=== PATIENT | female | born 1955 ===

== ENCOUNTER 2019-09-20 15:32 | Inpatient (IN) ==
[2019-09-20] MEDS ORDERED: MAGNESIUM SULF RIDER 2 GM in PREMIX 1 EACH IV PRN (16:51)
[2019-09-20] MEDS ORDERED: GLUCAGON 1 MG VIAL IM PRN ×2 (16:51)
[2019-09-20] MEDS ORDERED: MAGNESIUM SULF RIDER 4 GM in PREMIX 1 EACH IV PRN (16:51)
[2019-09-20] MEDS ORDERED: POTASSIUM CHLORIDE RIDER 10 MEQ in PREMIX 1 EACH IV PRN (16:51)
[2019-09-20] MEDS ORDERED: DEXTROSE 50% 25 GM/50 ML VIAL IV PRN ×2 (16:51)
[2019-09-20] MEDS ORDERED: ALBUTEROL 2.5 MG/3 ML NEB RESP TX PRN (16:57)
[2019-09-20] MEDS ORDERED: cefTRIAXone 1,000 MG in SYRINGE 1 EACH IV SCH (17:00)
[2019-09-20 17:42] LABS: ABG Base Excess 0.6 MMOL/L (-2.5-2.5); ABG HCO3 24.8 MMOL/L (20-26); ABG Oxygen Saturation 87.8 % (95-100); ABG PCO2 36.7 MM HG (35-48); ABG PH 7.435 (7.35-7.45); ABG PO2 53.6 MM HG (80-95); ABG TCO2 22.7 MMOL/L (23-27)
[2019-09-20] MEDS: HEPARIN 5,000 UNIT/1 ML VIAL SUBCUT SCH (19:03)
[2019-09-20] MEDS: AZITHROMYCIN INJ 500 MG in SODIUM CHLORIDE 0.9% 250 ML IV SCH (19:03)
[2019-09-20] MEDS: ALBUTEROL/IPRATROPIUM 3 ML NEB RESP TX SCH (19:21)
[2019-09-20] MEDS ORDERED: SIMVASTATIN 10 MG TABLET PO SCH (21:00)
[2019-09-20 21:22] LABS: Troponin I 0.945 NG/ML (0.00-0.045)
[2019-09-20] MEDS: guaiFENesin/DM ER 600-30 MG TABLET PO SCH (23:30)
[2019-09-20] MEDS: carvediloL 6.25 MG TABLET PO SCH (23:30)
[2019-09-20] MEDS: INSULIN GLARGINE 100 UNIT/ML SUBCUT SCH (23:30)
[2019-09-20] MEDS: INSULIN REGULAR 100 UNIT/ML SUBCUT SCH (23:31)
[2019-09-21] MEDS: ALBUTEROL/IPRATROPIUM 3 ML NEB RESP TX SCH ×4 (01:04→19:24)
[2019-09-21] MEDS: HEPARIN 5,000 UNIT/1 ML VIAL SUBCUT SCH (01:25)
[2019-09-21 03:22] LABS: Apearance,Urine CLOUDY (Clear); Bacteria,Urine Many /HPF (Few); Bilirubin,Urine Negative (Negative); Blood, Urine Small mg/dL (Negative); Glucose,Urine (UA) >=500 mg/dL (Negative); Ketones,Urine Negative (Negative); Mucus,Urine Occasional /LPF (Occasional); Nitrite,Urine Negative (Negative); Protein,Urine >=500 MG/DL; RBC,Urine 20 /HPF (0-4); Squamous Epithelial Cell,Urine Occasional /HPF (0-10); Urine Color Amber (Yellow); Urine Specific Gravity 1.014 (1.001-1.035); Urine Urobilinogen < 2.0 EU/DL (0.2-1.0); WBC,Urine 34 /HPF (0-6)
[2019-09-21 06:13] LABS: Basophils # 0.1 10*3/uL (0.0-0.2); Basophils % 0.6 % (0.0-0.8); Eosinophils # 0.4 10*3/uL (0.0-0.87); Eosinophils % 3.9 % (0.00-10.9); Hematocrit 26.4 VOL% (35.7-47.0); Hemoglobin 8.5 GM/DL (12.0-16.0); Immature Granulocytes % 0.4 %; Immature Granulocytes Absolute 0.04 #; Lymphocytes # 1.6 10*3/uL (1.4-4.0); Lymphocytes % 15.9 % (21.3-54.2); Mean Corpuscular HGB Conc 32.2 GM/DL (32-36); Mean Corpuscular Volume 86.8 FL (87-102); Mean Platelet Volume 10.6 FL (9.6-12.0); Monocytes % 7.8 % (1.7-12.7); Neutrophils % 71.4 % (38.7-73.9); Platelet Count 283 T/CUMM (130-400); Red Blood Count 3.04 MC/CUMM (3.8-5.5); Red Cell Distribution Width 13.6 % (9.3-17.3); White Blood Count 9.8 T/CUMM (4-12)
[2019-09-21 06:50] LABS: Albumin 2.3 G/DL (3.4-5.0); Bilirubin,Total 1.5 MG/DL (0.2-1.0); Calcium 8.6 MG/DL (8.5-10.1); Osmolality,Calculated 295.5 MOS/KG (273-304); Risk Ratio 3.42; Total Protein 6.3 G/DL (6.4-8.3); VLDL CHOLESTEROL 29.6 MG/DL
[2019-09-21] MEDS: INSULIN REGULAR 100 UNIT/ML SUBCUT SCH ×4 (08:53→22:34)
[2019-09-21] MEDS: PANTOPRAZOLE 40 MG TABLET PO SCH (08:54)
[2019-09-21] MEDS: amLODIPine 10 MG TABLET PO SCH (08:54)
[2019-09-21] MEDS: ASPIRIN CHEW 81 MG TABLET PO SCH (08:54)
[2019-09-21] MEDS: TOLTERODINE LA 4 MG CAPSULE PO SCH (08:54)
[2019-09-21] MEDS: carvediloL 6.25 MG TABLET PO SCH ×2 (08:54→22:33)
[2019-09-21] MEDS: SPIRONOLACTONE 25 MG TABLET PO SCH (08:54)
[2019-09-21] MEDS: ENOXAPARIN 100 MG/ML SYRINGE SUBCUT SCH (08:55)
[2019-09-21] MEDS: guaiFENesin/DM ER 600-30 MG TABLET PO SCH ×2 (08:55→22:33)
[2019-09-21] MEDS: FUROSEMIDE 40 MG/4 ML VIAL IV SCH ×2 (08:55→15:24)
[2019-09-21] MEDS: cefTRIAXone 1,000 MG in SYRINGE 1 EACH IV SCH (08:58)
[2019-09-21] MEDS: INSULIN GLARGINE 100 UNIT/ML SUBCUT SCH ×2 (09:04→22:33)
[2019-09-21] MEDS ORDERED: POTASSIUM CHLORIDE 20 MEQ TABLET PO ONE (11:04)
[2019-09-21] MEDS: hydrALAZINE 25 MG TABLET PO SCH ×3 (12:02→22:33)
[2019-09-21] MEDS: ISOSORBIDE MONONITRATE 30 MG TABLET PO SCH (12:02)
[2019-09-21] MEDS: AZITHROMYCIN INJ 500 MG in SODIUM CHLORIDE 0.9% 250 ML IV SCH (17:39)
[2019-09-21] MEDS ORDERED: ROSUVASTATIN 20 MG TABLET PO SCH (21:00)
[2019-09-22] MEDS: ALBUTEROL/IPRATROPIUM 3 ML NEB RESP TX SCH ×2 (00:22→07:46)
[2019-09-22 05:48] LABS: Basophils # 0.1 10*3/uL (0.0-0.2); Basophils % 0.8 % (0.0-0.8); Eosinophils # 0.8 10*3/uL (0.0-0.87); Eosinophils % 7.9 % (0.00-10.9); Hematocrit 25.5 VOL% (35.7-47.0); Hemoglobin 8.1 GM/DL (12.0-16.0); Immature Granulocytes % 0.3 %; Immature Granulocytes Absolute 0.03 #; Lymphocytes # 2.1 10*3/uL (1.4-4.0); Lymphocytes % 21.7 % (21.3-54.2); Mean Corpuscular HGB Conc 31.8 GM/DL (32-36); Mean Corpuscular Volume 89.5 FL (87-102); Mean Platelet Volume 10.7 FL (9.6-12.0); Monocytes % 8.1 % (1.7-12.7); Neutrophils % 61.2 % (38.7-73.9); Platelet Count 296 T/CUMM (130-400); Red Blood Count 2.85 MC/CUMM (3.8-5.5); Red Cell Distribution Width 13.7 % (9.3-17.3); White Blood Count 9.5 T/CUMM (4-12)
[2019-09-22 06:14] LABS: Albumin 2.3 G/DL (3.4-5.0); Bilirubin,Total 0.4 MG/DL (0.2-1.0); Calcium 8.4 MG/DL (8.5-10.1); Osmolality,Calculated 298.7 MOS/KG (273-304); Total Protein 6.6 G/DL (6.4-8.3)
[2019-09-22 06:15] LABS: Calcium 8.4 MG/DL (8.5-10.1); Osmolality,Calculated 297.8 MOS/KG (273-304)
[2019-09-22 07:53] LABS: % Iron Saturation 14.8 % (18-50); Ferritin 103.6 ng/ml (8-252)
[2019-09-22 09:01] VITALS: BP 127/50
[2019-09-22] MEDS: INSULIN REGULAR 100 UNIT/ML SUBCUT SCH ×2 (09:21→12:46)
[2019-09-22] MEDS: INSULIN GLARGINE 100 UNIT/ML SUBCUT SCH (09:21)
[2019-09-22] MEDS ORDERED: POTASSIUM CHLORIDE 20 MEQ TABLET PO ONE (09:39)
[2019-09-22] MEDS ORDERED: FUROSEMIDE 40 MG TABLET PO SCH (09:50)
[2019-09-22] MEDS: TOLTERODINE LA 4 MG CAPSULE PO SCH (10:00)
[2019-09-22] MEDS: hydrALAZINE 25 MG TABLET PO SCH (10:00)
[2019-09-22] MEDS: guaiFENesin/DM ER 600-30 MG TABLET PO SCH (10:00)
[2019-09-22] MEDS: carvediloL 6.25 MG TABLET PO SCH (10:00)
[2019-09-22] MEDS: ENOXAPARIN 100 MG/ML SYRINGE SUBCUT SCH (10:00)
[2019-09-22] MEDS: ISOSORBIDE MONONITRATE 30 MG TABLET PO SCH (10:00)
[2019-09-22] MEDS: amLODIPine 10 MG TABLET PO SCH (10:00)
[2019-09-22] MEDS: cefTRIAXone 1,000 MG in SYRINGE 1 EACH IV SCH (10:00)
[2019-09-22] MEDS: PANTOPRAZOLE 40 MG TABLET PO SCH (10:00)
[2019-09-22] MEDS: SPIRONOLACTONE 25 MG TABLET PO SCH (10:00)
[2019-09-22] MEDS: ASPIRIN CHEW 81 MG TABLET PO SCH (10:00)
[2019-09-22] MEDS: FUROSEMIDE 40 MG/4 ML VIAL IV SCH (10:49)
[2019-09-22] MEDS ORDERED: SODIUM CHLORIDE 0.9% 1,000 ML IV PRN (12:28)
[2019-09-22 18:30] LABS: Folate 10.1 NG/ML (5.4-24.0)
== END 2019-09-22 14:10 | disposition home or self-care (01) | DRG 280 ==
LOC: EDBD → EDUNIT# → N.ED 15:32 → N.EDINP 17:36 → N.5E 18:20
PROVIDERS: ADMIT Internal Medicine; ATTEND Internal Medicine

== ENCOUNTER 2019-11-08 18:20 | Inpatient (IN) ==
[2019-11-08 19:28] LABS: Basophils # 0.1 10*3/uL (0.0-0.2); Basophils % 0.8 % (0.0-0.8); Eosinophils # 0.3 10*3/uL (0.0-0.87); Eosinophils % 3.1 % (0.00-10.9); Hemoglobin 12.2 GM/DL (12.0-16.0); Immature Granulocytes % 0.3 %; Immature Granulocytes Absolute 0.03 #; Lymphocytes # 2.8 10*3/uL (1.4-4.0); Lymphocytes % 25.5 % (21.3-54.2); Mean Corpuscular Volume 82.8 FL (87-102); Mean Platelet Volume 9.5 FL (9.6-12.0); Monocytes % 4.6 % (1.7-12.7); Neutrophils % 65.7 % (38.7-73.9); Platelet Count 330 T/CUMM (130-400); Red Blood Count 4.47 MC/CUMM (3.8-5.5); Red Cell Distribution Width 13.4 % (9.3-17.3); White Blood Count 10.9 T/CUMM (4-12)
[2019-11-08 19:39] LABS: PT Patient Result 10.5 SECS (9.6-12.2)
[2019-11-08 19:45] LABS: Calcium 9.3 MG/DL (8.5-10.1); Osmolality,Calculated 280.2 MOS/KG (273-304)
[2019-11-08] MEDS ORDERED: DEXTROSE 50% 25 GM/50 ML VIAL IV PRN ×2 (20:00→20:02)
[2019-11-08] MEDS ORDERED: GLUCAGON 1 MG VIAL IM PRN ×2 (20:00→20:02)
[2019-11-09] MEDS: ROSUVASTATIN 20 MG TABLET PO SCH ×2 (01:44→20:43)
[2019-11-09] MEDS: INSULIN LISPRO 100 UNIT/ML SUBCUT SCH ×4 (01:45→16:18)
[2019-11-09 05:48] LABS: Basophils # 0.1 10*3/uL (0.0-0.2); Basophils % 0.9 % (0.0-0.8); Eosinophils # 0.4 10*3/uL (0.0-0.87); Eosinophils % 4.8 % (0.00-10.9); Hematocrit 34.3 VOL% (35.7-47.0); Hemoglobin 11.1 GM/DL (12.0-16.0); Immature Granulocytes % 0.3 %; Immature Granulocytes Absolute 0.03 #; Lymphocytes # 2.2 10*3/uL (1.4-4.0); Lymphocytes % 25.7 % (21.3-54.2); Mean Corpuscular HGB Conc 32.4 GM/DL (32-36); Mean Corpuscular Volume 84.1 FL (87-102); Mean Platelet Volume 10.3 FL (9.6-12.0); Monocytes % 6.5 % (1.7-12.7); Neutrophils % 61.8 % (38.7-73.9); Platelet Count 304 T/CUMM (130-400); Red Blood Count 4.08 MC/CUMM (3.8-5.5); Red Cell Distribution Width 13.5 % (9.3-17.3); White Blood Count 8.7 T/CUMM (4-12)
[2019-11-09 06:18] LABS: Calcium 8.9 MG/DL (8.5-10.1); Osmolality,Calculated 292.1 MOS/KG (273-304); Risk Ratio 2.94; Thyroid Stimulating Hormone 3.56 uIU/ml (0.358-3.74); VLDL CHOLESTEROL 45.8 MG/DL
[2019-11-09] MEDS: ASPIRIN EC 325 MG TABLET PO SCH (08:30)
[2019-11-09] MEDS ORDERED: hydrALAZINE 20 MG/1 ML VIAL IV ONE (12:43)
[2019-11-09] MEDS ORDERED: hydrALAZINE 20 MG/1 ML VIAL IV PRN (12:44)
[2019-11-09] MEDS: POTASSIUM CHLORIDE 20 MEQ TABLET PO PRN ×3 (14:22→17:54)
[2019-11-09] MEDS: SODIUM CHLORIDE 0.9% 1,000 ML IV SCH (17:58)
[2019-11-10] MEDS: INSULIN LISPRO 100 UNIT/ML SUBCUT SCH ×5 (04:17→20:14)
[2019-11-10 05:22] LABS: Basophils # 0.1 10*3/uL (0.0-0.2); Basophils % 1.1 % (0.0-0.8); Eosinophils # 0.5 10*3/uL (0.0-0.87); Eosinophils % 5.6 % (0.00-10.9); Hematocrit 34.4 VOL% (35.7-47.0); Hemoglobin 10.9 GM/DL (12.0-16.0); Immature Granulocytes % 0.4 %; Immature Granulocytes Absolute 0.03 #; Lymphocytes # 2.5 10*3/uL (1.4-4.0); Lymphocytes % 29.7 % (21.3-54.2); Mean Corpuscular HGB Conc 31.7 GM/DL (32-36); Mean Corpuscular Volume 84.7 FL (87-102); Monocytes % 7.9 % (1.7-12.7); Neutrophils % 55.3 % (38.7-73.9); Platelet Count 293 T/CUMM (130-400); Red Blood Count 4.06 MC/CUMM (3.8-5.5); Red Cell Distribution Width 13.3 % (9.3-17.3); White Blood Count 8.5 T/CUMM (4-12)
[2019-11-10 05:41] LABS: Calcium 8.5 MG/DL (8.5-10.1); Osmolality,Calculated 291.7 MOS/KG (273-304)
[2019-11-10] MEDS: SODIUM CHLORIDE 0.9% 1,000 ML IV SCH (07:57)
[2019-11-10] MEDS: ASPIRIN EC 325 MG TABLET PO SCH (08:00)
[2019-11-10] MEDS: CYANOCOBALAMIN 500 MCG TABLET PO SCH (08:00)
[2019-11-10] MEDS ORDERED: amLODIPine 10 MG TABLET PO SCH (12:30)
[2019-11-10] MEDS: ROSUVASTATIN 20 MG TABLET PO SCH (20:13)
[2019-11-11 05:54] LABS: Basophils # 0.1 10*3/uL (0.0-0.2); Basophils % 0.8 % (0.0-0.8); Eosinophils # 0.7 10*3/uL (0.0-0.87); Eosinophils % 6.8 % (0.00-10.9); Hematocrit 34.2 VOL% (35.7-47.0); Hemoglobin 11.1 GM/DL (12.0-16.0); Immature Granulocytes % 0.3 %; Immature Granulocytes Absolute 0.03 #; Lymphocytes # 2.3 10*3/uL (1.4-4.0); Lymphocytes % 24.2 % (21.3-54.2); Mean Corpuscular HGB Conc 32.5 GM/DL (32-36); Mean Corpuscular Volume 83.6 FL (87-102); Mean Platelet Volume 10.4 FL (9.6-12.0); Monocytes % 6.9 % (1.7-12.7); Platelet Count 297 T/CUMM (130-400); Red Blood Count 4.09 MC/CUMM (3.8-5.5); Red Cell Distribution Width 13.2 % (9.3-17.3); White Blood Count 9.5 T/CUMM (4-12)
[2019-11-11 06:05] LABS: Calcium 9.2 MG/DL (8.5-10.1); Osmolality,Calculated 283.1 MOS/KG (273-304)
[2019-11-11] MEDS: INSULIN LISPRO 100 UNIT/ML SUBCUT SCH ×2 (08:13→12:30)
[2019-11-11] MEDS: ASPIRIN EC 325 MG TABLET PO SCH (08:14)
[2019-11-11] MEDS: CYANOCOBALAMIN 500 MCG TABLET PO SCH (08:14)
[2019-11-11] MEDS ORDERED: SPIRONOLACTONE 25 MG TABLET PO SCH (09:00)
[2019-11-11] MEDS ORDERED: carvediloL 12.5 MG TABLET PO SCH (09:00)
[2019-11-11] MEDS ORDERED: GABAPENTIN 300 MG CAPSULE PO SCH (09:00)
[2019-11-11] MEDS ORDERED: FUROSEMIDE 40 MG TABLET PO SCH (09:00)
[2019-11-11] MEDS ORDERED: CLOPIDOGREL 75 MG TABLET PO SCH (09:00)
[2019-11-11] MEDS ORDERED: TOLTERODINE LA 4 MG CAPSULE PO SCH (09:00)
[2019-11-11] MEDS ORDERED: ISOSORBIDE DINITRATE 20 MG TABLET PO SCH (09:00)
[2019-11-11] MEDS ORDERED: hydrALAZINE 25 MG TABLET PO SCH (09:00)
[2019-11-11] MEDS ORDERED: amLODIPine 2.5 MG TABLET PO SCH (09:00)
[2019-11-11] MEDS: SODIUM CHLORIDE 0.9% 1,000 ML IV SCH (10:30)
[2019-11-11 11:49] VITALS: BP 172/78
== END 2019-11-11 12:55 | disposition home or self-care (01) | DRG 65 ==
LOC: EDBD → EDUNIT# → N.EDINP 18:20 → N.ED 18:20 → N.4E 22:01
PROVIDERS: ADMIT Internal Medicine; ATTEND Internal Medicine

== ENCOUNTER 2020-08-15 06:00 | Inpatient (IN) ==
[2020-08-15] MEDS ORDERED: DEXTROSE 50% 25 GM/50 ML VIAL IV PRN ×2 (09:39→09:43)
[2020-08-15] MEDS ORDERED: GLUCAGON 1 MG VIAL IM PRN ×2 (09:39→09:43)
[2020-08-15] MEDS ORDERED: SODIUM CHLORIDE 0.9% 1,000 ML IV SCH (10:00)
[2020-08-15] MEDS ORDERED: PNEUMOCOCCAL VACCINE (13 VALENT) 0.5 ML SYRINGE IM ONE (10:18)
[2020-08-15 10:23] LABS: Basophils # 0.1 10*3/uL (0.0-0.2); Basophils % 0.8 % (0.0-0.8); Eosinophils # 0.3 10*3/uL (0.0-0.87); Hematocrit 30.7 VOL% (35.7-47.0); Immature Granulocytes % 0.4 %; Immature Granulocytes Absolute 0.03 #; Lymphocytes # 1.4 10*3/uL (1.4-4.0); Lymphocytes % 16.4 % (21.3-54.2); Mean Corpuscular HGB Conc 32.6 GM/DL (32-36); Mean Corpuscular Volume 84.1 FL (87-102); Mean Platelet Volume 10.6 FL (9.6-12.0); Monocytes % 4.9 % (1.7-12.7); Neutrophils % 74.5 % (38.7-73.9); Platelet Count 224 T/CUMM (130-400); Red Blood Count 3.65 MC/CUMM (3.8-5.5); White Blood Count 8.5 T/CUMM (4-12)
[2020-08-15 10:44] LABS: Albumin 3.3 G/DL (3.4-5.0); Bilirubin,Total 0.7 MG/DL (0.2-1.0); Calcium 8.6 MG/DL (8.5-10.1); Osmolality,Calculated 300.4 MOS/KG (273-304)
[2020-08-15] MEDS ORDERED: NITROGLYCERIN SL 0.4 MG TABLET SL PRN (11:18)
[2020-08-15] MEDS ORDERED: CLORAZEPATE 3.75 MG TABLET PO PRN (11:27)
[2020-08-15] MEDS ORDERED: ZALEPLON 5 MG CAPSULE PO PRN (11:27)
[2020-08-15] MEDS: INSULIN REGULAR 100 UNIT/ML SUBCUT SCH ×3 (12:21→21:24)
[2020-08-15 14:03] LABS: ABG Base Excess -0.6 MMOL/L (-2.5-2.5); ABG HCO3 23.9 MMOL/L (20-26); ABG Oxygen Saturation 96.3 % (95-100); ABG PCO2 39.8 MM HG (35-48); ABG PH 7.393 (7.35-7.45); ABG PO2 82.3 MM HG (80-95)
[2020-08-15] MEDS ORDERED: INSULIN REGULAR 100 UNIT/ML IV ONE (14:11)
[2020-08-15] MEDS: hydrALAZINE 25 MG TABLET PO SCH ×2 (14:48→21:24)
[2020-08-15] MEDS: CHLORHEXIDINE 4% SOLN 118 ML BOTTLE TOP SCH ×2 (15:14→21:33)
[2020-08-15] MEDS ORDERED: INSULIN GLARGINE 100 UNIT/ML SUBCUT SCH (21:00)
[2020-08-15] MEDS: CHLORHEXIDINE 0.12% ORAL RINSE 60 ML BOTTLE SWISH/SPIT SCH (21:26)
[2020-08-16] MEDS ORDERED: PAPAVERINE 60 MG/2 ML VIAL ONE (04:23)
[2020-08-16] MEDS ORDERED: VANCOMYCIN 1,000 MG VIAL ONE (04:24)
[2020-08-16] MEDS ORDERED: VANCOMYCIN 500 MG VIAL ONE (04:24)
[2020-08-16] MEDS: CHLORHEXIDINE 4% SOLN 118 ML BOTTLE TOP SCH ×2 (04:44→12:55)
[2020-08-16] MEDS ORDERED: CEFUROXIME INJ 1,500 MG in SYRINGE 1 EACH IV ONE (05:00)
[2020-08-16] MEDS ORDERED: MIDAZOLAM 10 MG/2 ML VIAL ONE (05:59)
[2020-08-16] MEDS ORDERED: SUFentanil 250 MCG/5 ML AMP ONE (05:59)
[2020-08-16] MEDS ORDERED: FAMOTIDINE 20 MG TABLET PO ONE (06:03)
[2020-08-16] MEDS ORDERED: DIAZEPAM 5 MG TABLET PO ONE (06:03)
[2020-08-16] MEDS ORDERED: PHENYLEPHRINE DRIP 40 MG/250 ML PREMIX IV ONE (07:04)
[2020-08-16 07:49] LABS: ABG Base Excess -1.3 MMOL/L (-2.5-2.5); ABG HCO3 23.3 MMOL/L (20-26); ABG Oxygen Saturation 99.9 % (95-100); ABG PH 7.403 (7.35-7.45); ABG TCO2 21.2 MMOL/L (23-27); Glucose Heart Surgery 204 MG/DL (74-106); Hematocrit Heart Surgery 28.3 PERCENT (37-47); Hemoglobin Heart Surgery 9.1 G/DL (12.0-16.0); Ionized Calcium Arterial 1.13 MMOL/L (1.21-1.46); PH Patient Temp Arterial 7.403; Patient Temperature 37 CELCIUS; Potassium Heart/CVR 3.9 MMOL/L (3.5-5.1); Sodium Heart/CVR 140 MMOL/L (135-145)
[2020-08-16 07:58] LABS: Amorphous Crystals,Urine Few /HPF (Few); Bacteria,Urine Many /HPF (Few); Bilirubin,Urine Negative (Negative); Blood, Urine Negative (Negative); Glucose,Urine (UA) 50 mg/dL (Negative); Ketones,Urine Negative (Negative); Nitrite,Urine Positive (Negative); Protein,Urine 100 MG/DL; RBC,Urine 4 /HPF (0-4); Squamous Epithelial Cell,Urine Moderate /HPF (0-10); Urine Appearance CLOUDY (Clear); Urine Color Yellow (Yellow); Urine Specific Gravity 1.013 (1.001-1.035); Urine Urobilinogen < 2.0 EU/DL (0.2-1.0); WBC,Urine 14 /HPF (0-6)
[2020-08-16] MEDS ORDERED: PHENYLEPHRINE DRIP 20 MG/250 ML PREMIX IV ONE (09:07)
[2020-08-16] MEDS ORDERED: NITROGLYCERIN DRIP 50 MG/250 ML BOTTLE IV ONE (09:07)
[2020-08-16] MEDS ORDERED: HEPARIN/NACL 0.9% 2 UNITS/ML 500 ML IV ONE ×2 (09:07→12:44)
[2020-08-16 09:16] LABS: Hematocrit Heart Surgery 26.3 PERCENT (37-47); Hemoglobin Heart Surgery 8.5 G/DL (12.0-16.0); PCO2 Patient Temp Venous 31.2 MM HG; PH Patient Temp Venous 7.458; PO2 Patient Temp Venous 44.4 MM HG; Potassium Heart/CVR 4.5 MMOL/L (3.5-5.1); VBG Base Excess -1.2 MEQ/L (0-4); VBG HCO3 23.3 MEQ/L (24-28); VBG Oxygen Saturation 89.5 %; VBG PCO2 36.1 MMHG (41-51); VBG PH 7.414; VBG PO2 54.4 MMHG (17-40)
[2020-08-16 09:46] LABS: Hematocrit Heart Surgery 28.1 PERCENT (37-47); Hemoglobin Heart Surgery 9.1 G/DL (12.0-16.0); PH Patient Temp Venous 7.51; PO2 Patient Temp Venous 34.4 MM HG; Potassium Heart/CVR 4.5 MMOL/L (3.5-5.1); VBG HCO3 24.2 MEQ/L (24-28); VBG Oxygen Saturation 81.5 %; VBG PCO2 32.3 MMHG (41-51); VBG PH 7.465; VBG PO2 42.4 MMHG (17-40)
[2020-08-16 10:15] LABS: Hematocrit Heart Surgery 28.1 PERCENT (37-47); Hemoglobin Heart Surgery 9.1 G/DL (12.0-16.0); PCO2 Patient Temp Venous 26.9 MM HG; PH Patient Temp Venous 7.521; PO2 Patient Temp Venous 33.6 MM HG; Potassium Heart/CVR 4.8 MMOL/L (3.5-5.1); VBG Base Excess -0.1 MEQ/L (0-4); VBG HCO3 24.1 MEQ/L (24-28); VBG Oxygen Saturation 77.9 %; VBG PCO2 29.6 MMHG (41-51); VBG PH 7.491; VBG PO2 38.6 MMHG (17-40)
[2020-08-16] MEDS ORDERED: HEPARIN 10,000 UNIT/10 ML VIAL ONE (10:54)
[2020-08-16] MEDS ORDERED: ALBUMIN 25% 25 GM/100 ML VIAL IV ONE (10:54)
[2020-08-16] MEDS ORDERED: FUROSEMIDE 20 MG/2 ML VIAL ONE (10:54)
[2020-08-16] MEDS ORDERED: DEXTROSE 5% KCL 20 MEQ 20 MEQ/1,000 ML BAG IV ONE (10:54)
[2020-08-16] MEDS ORDERED: PROTAMINE SULFATE 250 MG/25 ML VIAL IV ONE (10:54)
[2020-08-16] MEDS ORDERED: methylPREDNISolone SOD SUC 1,000 MG/8 ML VIAL ONE (10:54)
[2020-08-16] MEDS ORDERED: MANNITOL 100 GM/500 ML BAG IV ONE (10:54)
[2020-08-16] MEDS ORDERED: SODIUM BICARBONATE 50 MEQ/50 ML VIAL IV ONE (10:54)
[2020-08-16] MEDS ORDERED: MAGNESIUM SULFATE 5 GM/10 ML VIAL IV ONE (10:54)
[2020-08-16] MEDS ORDERED: LIDOCAINE 2% 5 ML VIAL ONE ×2 (10:55→12:43)
[2020-08-16] MEDS ORDERED: PROTAMINE SULFATE 50 MG/5 ML VIAL IV ONE (10:55)
[2020-08-16 11:12] LABS: ABG Base Excess -1.8 MMOL/L (-2.5-2.5); ABG PCO2 28.9 MM HG (35-48); ABG TCO2 19.2 MMOL/L (23-27); Glucose Heart Surgery 337 MG/DL (74-106); Hematocrit Heart Surgery 29.9 PERCENT (37-47); Hemoglobin Heart Surgery 9.7 G/DL (12.0-16.0); Ionized Calcium Arterial 1.22 MMOL/L (1.21-1.46); PCO2 Patient Temp Arterial 28.9 MMHG; Patient Temperature 37 CELCIUS; Potassium Heart/CVR 4.1 MMOL/L (3.5-5.1); Sodium Heart/CVR 134 MMOL/L (135-145)
[2020-08-16] MEDS: LACTATED RINGERS 1,000 ML IV PRN ×2 (12:00→13:36)
[2020-08-16] MEDS: SODIUM CHLORIDE 0.45% 1,000 ML IV SCH ×2 (12:00)
[2020-08-16] MEDS ORDERED: INSULIN REGULAR 100 UNIT/ML IV PRN (12:05)
[2020-08-16] MEDS ORDERED: MIDAZOLAM 2 MG/2 ML VIAL IV PRN (12:05)
[2020-08-16] MEDS ORDERED: MAGNESIUM SULF RIDER 2 GM in PREMIX 1 EACH IV PRN (12:05)
[2020-08-16] MEDS ORDERED: LACTATED RINGERS 250 ML IV PRN (12:05)
[2020-08-16] MEDS ORDERED: VECURONIUM 10 MG VIAL IV PRN ×2 (12:05)
[2020-08-16] MEDS ORDERED: CHLORHEXIDINE 4% SOLN 118 ML BOTTLE TOP PRN (12:05)
[2020-08-16] MEDS ORDERED: PHENYLEPHRINE DRIP 40 MG/250 ML PREMIX IV PRN (12:05)
[2020-08-16] MEDS ORDERED: ACETAMINOPHEN 650 MG SUPP RECTAL PRN (12:05)
[2020-08-16] MEDS ORDERED: INSULIN REGULAR 100 UNIT/ML IV ONE (12:05)
[2020-08-16] MEDS ORDERED: MAGNESIUM SULF RIDER 4 GM in PREMIX 1 EACH IV PRN (12:05)
[2020-08-16] MEDS ORDERED: NITROPRUSSIDE 100 MG in DEXTROSE 5% 250 ML IV PRN (12:05)
[2020-08-16] MEDS ORDERED: POTASSIUM CHLORIDE RIDER 10 MEQ in PREMIX 1 EACH IV PRN (12:05)
[2020-08-16] MEDS ORDERED: MIDAZOLAM 10 MG/2 ML VIAL IV PRN (12:05)
[2020-08-16] MEDS ORDERED: DEXTROSE 50% 25 GM/50 ML VIAL IV PRN ×2 (12:05)
[2020-08-16] MEDS ORDERED: CALCIUM CHLORIDE 1,000 MG/10 ML SYRINGE IV PRN (12:05)
[2020-08-16] MEDS ORDERED: MORPHINE 10 MG/1 ML VIAL IV PRN (12:05)
[2020-08-16 12:28] LABS: ABG Base Excess -5.5 MMOL/L (-2.5-2.5); ABG HCO3 19.2 MMOL/L (20-26); ABG Oxygen Saturation 96.3 % (95-100); ABG PCO2 34.9 MM HG (35-48); ABG PH 7.359 (7.35-7.45); ABG PO2 90.6 MM HG (80-95); ABG TCO2 20.3 MMOL/L (23-27); Glucose Heart Surgery 246 MG/DL (74-106); Hemoglobin Heart Surgery 10.8 G/DL (12.0-16.0); Potassium Heart/CVR 3.5 MMOL/L (3.5-5.1)
[2020-08-16 12:36] LABS: Basophils # 0.1 10*3/uL (0.0-0.2); Basophils % 0.3 % (0.0-0.8); Eosinophils # 0.1 10*3/uL (0.0-0.87); Eosinophils % 0.8 % (0.00-10.9); Hematocrit 31.2 VOL% (35.7-47.0); Hemoglobin 10.3 GM/DL (12.0-16.0); Immature Granulocytes % 0.7 %; Immature Granulocytes Absolute 0.11 #; Lymphocytes # 1.2 10*3/uL (1.4-4.0); Lymphocytes % 7.3 % (21.3-54.2); Mean Corpuscular Volume 85.7 FL (87-102); Mean Platelet Volume 10.9 FL (9.6-12.0); Monocytes % 3.1 % (1.7-12.7); Neutrophils % 87.8 % (38.7-73.9); Platelet Count 113 T/CUMM (130-400); Red Blood Count 3.64 MC/CUMM (3.8-5.5); Red Cell Distribution Width 13.5 % (9.3-17.3); White Blood Count 15.7 T/CUMM (4-12)
[2020-08-16] MEDS: INSULIN REGULAR DRIP 100 ML IV SCH (12:40)
[2020-08-16 12:41] LABS: INR 1.2; PT Patient Result 12.3 SECS (9.8-11.9); Partial Thromboplastin Time 33.3 SECS (23.9-33.8)
[2020-08-16] MEDS: POTASSIUM CHLORIDE RIDER 20 MEQ in PREMIX 1 EACH IV PRN ×3 (12:42→15:53)
[2020-08-16] MEDS ORDERED: CALCIUM CHLORIDE 1,000 MG/10 ML VIAL IV ONE (12:43)
[2020-08-16] MEDS ORDERED: VECURONIUM 10 MG VIAL IV ONE (12:44)
[2020-08-16] MEDS ORDERED: ePHEDrine 50 MG/ML VIAL ONE (12:44)
[2020-08-16] MEDS ORDERED: SEVOFLURANE 1 UNIT/15 MINUTE INH ONE (12:44)
[2020-08-16] MEDS ORDERED: ETOMIDATE 40 MG/20 ML VIAL IV ONE (12:44)
[2020-08-16] MEDS ORDERED: GLYCOPYRROLATE 0.4 MG/2 ML VIAL ONE (12:44)
[2020-08-16] MEDS ORDERED: SODIUM CHLORIDE 0.9% 1,000 ML IV ONE (12:45)
[2020-08-16] MEDS ORDERED: AMINOCAPROIC ACID 5,000 MG/20 ML VIAL ONE (12:45)
[2020-08-16 12:54] LABS: CKMB % 7.1 %
[2020-08-16 12:56] LABS: Troponin I 6.21 NG/ML (0.00-0.045)
[2020-08-16 13:01] LABS: Albumin 2.5 G/DL (3.4-5.0); Bilirubin,Total 0.8 MG/DL (0.2-1.0); Calcium 8.4 MG/DL (8.5-10.1); Osmolality,Calculated 294.4 MOS/KG (273-304); Platelet Estimate Adequate; Total Protein 5.2 G/DL (6.4-8.3)
[2020-08-16 13:02] LABS: Anisocytosis Slight
[2020-08-16] MEDS: CHLORHEXIDINE 0.12% ORAL RINSE 60 ML BOTTLE SWISH/SPIT SCH ×2 (13:23→20:22)
[2020-08-16] MEDS: hydrALAZINE 25 MG TABLET PO SCH (13:24)
[2020-08-16] MEDS: INSULIN REGULAR 100 UNIT/ML SUBCUT SCH (13:25)
[2020-08-16 13:34] LABS: ABG Base Excess -4.6 MMOL/L (-2.5-2.5); ABG HCO3 20.6 MMOL/L (20-26); ABG Oxygen Saturation 96.6 % (95-100); ABG PCO2 38.4 MM HG (35-48); ABG PO2 91.4 MM HG (80-95); ABG TCO2 18.7 MMOL/L (23-27); Glucose Heart Surgery 198 MG/DL (74-106); Hematocrit Heart Surgery 34.1 PERCENT (37-47); Hemoglobin Heart Surgery 11.1 G/DL (12.0-16.0); Potassium Heart/CVR 3.9 MMOL/L (3.5-5.1)
[2020-08-16 14:18] LABS: ABG Base Excess -4.1 MMOL/L (-2.5-2.5); ABG Oxygen Saturation 96.9 % (95-100); ABG PCO2 33.5 MM HG (35-48); ABG PH 7.394 (7.35-7.45); ABG PO2 101.7 MM HG (80-95); Glucose Heart Surgery 176 MG/DL (74-106); Hemoglobin Heart Surgery 11.5 G/DL (12.0-16.0); Potassium Heart/CVR 4.1 MMOL/L (3.5-5.1)
[2020-08-16 15:43] LABS: ABG Base Excess -2.5 MMOL/L (-2.5-2.5); ABG HCO3 20.8 MMOL/L (20-26); ABG PCO2 31.3 MM HG (35-48); ABG PH 7.441 (7.35-7.45); ABG PO2 95.7 MM HG (80-95); ABG TCO2 21.8 MMOL/L (23-27); Glucose Heart Surgery 145 MG/DL (74-106); Hemoglobin Heart Surgery 11.6 G/DL (12.0-16.0); Potassium Heart/CVR 3.7 MMOL/L (3.5-5.1)
[2020-08-16] MEDS ORDERED: FUROSEMIDE 40 MG/4 ML VIAL IV ONE ×2 (16:35→22:00)
[2020-08-16 16:37] LABS: ABG Base Excess -1.7 MMOL/L (-2.5-2.5); ABG Oxygen Saturation 98.1 % (95-100); ABG PH 7.438 (7.35-7.45); ABG TCO2 19.3 MMOL/L (23-27); Glucose Heart Surgery 138 MG/DL (74-106); Hematocrit Heart Surgery 34.8 PERCENT (37-47); Hemoglobin Heart Surgery 11.3 G/DL (12.0-16.0); Potassium Heart/CVR 4.5 MMOL/L (3.5-5.1)
[2020-08-16] MEDS: ALBUMIN 5% 12.5 GM in PREMIX 1 EACH IV PRN (17:50)
[2020-08-16] MEDS: MORPHINE 4 MG/1 ML VIAL IV PRN (18:31)
[2020-08-16 18:44] LABS: ABG Base Excess -1.9 MMOL/L (-2.5-2.5); ABG HCO3 22.8 MMOL/L (20-26); ABG Oxygen Saturation 98.7 % (95-100); ABG PCO2 33.8 MM HG (35-48); ABG TCO2 19.5 MMOL/L (23-27); Glucose Heart Surgery 129 MG/DL (74-106); Hematocrit Heart Surgery 35.3 PERCENT (37-47); Hemoglobin Heart Surgery 11.5 G/DL (12.0-16.0); Potassium Heart/CVR 4.1 MMOL/L (3.5-5.1)
[2020-08-16] MEDS: CEFUROXIME INJ 1,500 MG in SYRINGE 1 EACH IV SCH (20:22)
[2020-08-16 21:40] LABS: CKMB % 5.1 %
[2020-08-16 21:43] LABS: Troponin I 16.5 NG/ML (0.00-0.045)
[2020-08-16 22:17] LABS: ABG Base Excess -2.4 MMOL/L (-2.5-2.5); ABG HCO3 22.4 MMOL/L (20-26); ABG Oxygen Saturation 98.3 % (95-100); ABG PCO2 35.2 MM HG (35-48); ABG TCO2 19.7 MMOL/L (23-27); Glucose Heart Surgery 138 MG/DL (74-106); Hematocrit Heart Surgery 32.9 PERCENT (37-47); Hemoglobin Heart Surgery 10.6 G/DL (12.0-16.0); Potassium Heart/CVR 4.1 MMOL/L (3.5-5.1)
[2020-08-17 00:27] LABS: ABG HCO3 21.4 MMOL/L (20-26); ABG Oxygen Saturation 98.1 % (95-100); ABG PCO2 35.8 MM HG (35-48); ABG PH 7.394 (7.35-7.45); ABG PO2 126.6 MM HG (80-95); ABG TCO2 22.5 MMOL/L (23-27); Glucose Heart Surgery 128 MG/DL (74-106); Hemoglobin Heart Surgery 11.5 G/DL (12.0-16.0); Potassium Heart/CVR 3.8 MMOL/L (3.5-5.1)
[2020-08-17] MEDS: POTASSIUM CHLORIDE RIDER 20 MEQ in PREMIX 1 EACH IV PRN (00:45)
[2020-08-17] MEDS: ALBUMIN 5% 12.5 GM in PREMIX 1 EACH IV PRN (00:53)
[2020-08-17] MEDS ORDERED: FUROSEMIDE 40 MG/4 ML VIAL IV ONE (02:00)
[2020-08-17 02:54] LABS: ABG Base Excess -3.3 MMOL/L (-2.5-2.5); ABG HCO3 21.7 MMOL/L (20-26); ABG Oxygen Saturation 98.6 % (95-100); ABG PCO2 43.6 MM HG (35-48); ABG PH 7.324 (7.35-7.45); ABG TCO2 20.7 MMOL/L (23-27); Glucose Heart Surgery 126 MG/DL (74-106); Hematocrit Heart Surgery 31.8 PERCENT (37-47); Hemoglobin Heart Surgery 10.3 G/DL (12.0-16.0); Potassium Heart/CVR 4.2 MMOL/L (3.5-5.1)
[2020-08-17 02:58] LABS: Basophils % 0.2 % (0.0-0.8); Eosinophils # 0.1 10*3/uL (0.0-0.87); Eosinophils % 0.3 % (0.00-10.9); Hematocrit 30.9 VOL% (35.7-47.0); Hemoglobin 10.3 GM/DL (12.0-16.0); Immature Granulocytes % 0.7 %; Immature Granulocytes Absolute 0.14 #; Lymphocytes # 1.1 10*3/uL (1.4-4.0); Lymphocytes % 5.7 % (21.3-54.2); Mean Corpuscular HGB Conc 33.3 GM/DL (32-36); Mean Corpuscular Volume 85.8 FL (87-102); Mean Platelet Volume 10.4 FL (9.6-12.0); Monocytes % 1.8 % (1.7-12.7); Neutrophils % 91.3 % (38.7-73.9); Platelet Count 148 T/CUMM (130-400); Red Cell Distribution Width 13.8 % (9.3-17.3); White Blood Count 19.4 T/CUMM (4-12)
[2020-08-17 03:25] LABS: Albumin 3.2 G/DL (3.4-5.0); Bilirubin,Direct 0.19 MG/DL (0.0-0.20); Bilirubin,Total 0.7 MG/DL (0.2-1.0); Osmolality,Calculated 292.1 MOS/KG (273-304); Total Protein 6.2 G/DL (6.4-8.3)
[2020-08-17 03:27] LABS: CKMB % 5.5 %
[2020-08-17 03:32] LABS: Lymphocytes 3 % (20-55); Segmented Neutrophils 96 % (50-85); Total Cells Counted 100; Troponin I 18.2 NG/ML (0.00-0.045)
[2020-08-17 03:33] LABS: Hypochromasia Slight; Ovalocytes 1+; Platelet Estimate Normal
[2020-08-17 04:19] LABS: ABG HCO3 21.9 MMOL/L (20-26); ABG Oxygen Saturation 98.8 % (95-100); ABG PCO2 42.5 MM HG (35-48); ABG PH 7.336 (7.35-7.45); ABG TCO2 20.7 MMOL/L (23-27); Glucose Heart Surgery 123 MG/DL (74-106); Hematocrit Heart Surgery 32.3 PERCENT (37-47); Hemoglobin Heart Surgery 10.5 G/DL (12.0-16.0); Potassium Heart/CVR 4.2 MMOL/L (3.5-5.1)
[2020-08-17 05:42] LABS: ABG Base Excess -3.3 MMOL/L (-2.5-2.5); ABG HCO3 21.7 MMOL/L (20-26); ABG Oxygen Saturation 98.9 % (95-100); ABG PH 7.322 (7.35-7.45); ABG TCO2 20.8 MMOL/L (23-27); Glucose Heart Surgery 123 MG/DL (74-106); Hematocrit Heart Surgery 32.1 PERCENT (37-47); Hemoglobin Heart Surgery 10.4 G/DL (12.0-16.0); Potassium Heart/CVR 4.1 MMOL/L (3.5-5.1)
[2020-08-17] MEDS: ONDANSETRON 4 MG/2 ML VIAL IV PRN ×2 (06:26→14:34)
[2020-08-17] MEDS: CEFUROXIME INJ 1,500 MG in SYRINGE 1 EACH IV SCH ×2 (08:02→18:30)
[2020-08-17] MEDS: CHLORHEXIDINE 0.12% ORAL RINSE 60 ML BOTTLE SWISH/SPIT SCH ×2 (10:28→21:01)
[2020-08-17] MEDS: ASPIRIN EC 325 MG TABLET PO SCH (10:28)
[2020-08-17] MEDS: LEVOFLOXACIN 500 MG TABLET PO SCH (11:48)
[2020-08-17 12:22] LABS: CKMB % 4.9 %
[2020-08-17 12:25] LABS: Troponin I 15.1 NG/ML (0.00-0.045)
[2020-08-17] MEDS: SODIUM CHLORIDE 0.45% 1,000 ML IV SCH ×2 (12:43)
[2020-08-17] MEDS: INSULIN REGULAR DRIP 100 ML IV SCH (13:15)
[2020-08-17] MEDS: INSULIN GLARGINE 100 UNIT/ML SUBCUT SCH ×2 (13:43→20:59)
[2020-08-17] MEDS ORDERED: GLUCAGON 1 MG VIAL IM PRN (13:59)
[2020-08-17] MEDS ORDERED: DEXTROSE 50% 25 GM/50 ML VIAL IV PRN (13:59)
[2020-08-17] MEDS: hydrALAZINE 25 MG TABLET PO SCH ×2 (15:34→20:58)
[2020-08-17] MEDS: INSULIN LISPRO 100 UNIT/ML SUBCUT SCH ×2 (16:38→21:00)
[2020-08-17] MEDS: MORPHINE 4 MG/1 ML VIAL IV PRN ×2 (17:35→21:53)
[2020-08-17] MEDS: ASCORBIC ACID 500 MG TABLET PO SCH (20:58)
[2020-08-17] MEDS: ROSUVASTATIN 10 MG TABLET PO SCH (20:58)
[2020-08-18] MEDS: ONDANSETRON 4 MG/2 ML VIAL IV PRN (00:57)
[2020-08-18] MEDS: INSULIN LISPRO 100 UNIT/ML SUBCUT SCH ×6 (00:58→23:10)
[2020-08-18 05:52] LABS: Basophils % 0.2 % (0.0-0.8); Hematocrit 30.4 VOL% (35.7-47.0); Hemoglobin 9.9 GM/DL (12.0-16.0); Immature Granulocytes % 0.7 %; Immature Granulocytes Absolute 0.14 #; Lymphocytes % 4.8 % (21.3-54.2); Mean Corpuscular HGB Conc 32.6 GM/DL (32-36); Mean Corpuscular Volume 87.9 FL (87-102); Monocytes % 5.1 % (1.7-12.7); Neutrophils % 89.2 % (38.7-73.9); Platelet Count 133 T/CUMM (130-400); Red Blood Count 3.46 MC/CUMM (3.8-5.5)
[2020-08-18 06:35] LABS: CKMB % 3.1 %
[2020-08-18 06:40] LABS: Troponin I 10.6 NG/ML (0.00-0.045)
[2020-08-18 06:43] LABS: Albumin 2.7 G/DL (3.4-5.0); Bilirubin,Direct 0.17 MG/DL (0.0-0.20); Bilirubin,Total 0.6 MG/DL (0.2-1.0); Calcium 8.5 MG/DL (8.5-10.1); Osmolality,Calculated 293.5 MOS/KG (273-304); Total Protein 6.1 G/DL (6.4-8.3)
[2020-08-18 07:07] LABS: Hypochromasia 1+; Lymphocytes 3 % (20-55); Microcytosis 1+; Ovalocytes Slight; Platelet Estimate Adequate; Segmented Neutrophils 96 % (50-85); Total Cells Counted 100
[2020-08-18] MEDS: ASPIRIN EC 325 MG TABLET PO SCH (09:15)
[2020-08-18] MEDS: CHLORHEXIDINE 0.12% ORAL RINSE 60 ML BOTTLE SWISH/SPIT SCH ×2 (09:15→20:57)
[2020-08-18] MEDS: LEVOFLOXACIN 500 MG TABLET PO SCH (09:15)
[2020-08-18] MEDS: CYANOCOBALAMIN 500 MCG TABLET PO SCH (09:15)
[2020-08-18] MEDS: ASCORBIC ACID 500 MG TABLET PO SCH ×2 (09:15→20:49)
[2020-08-18] MEDS: hydrALAZINE 25 MG TABLET PO SCH ×3 (09:15→20:49)
[2020-08-18] MEDS: LEVOTHYROXINE 75 MCG TABLET PO SCH (09:15)
[2020-08-18] MEDS: INSULIN GLARGINE 100 UNIT/ML SUBCUT SCH ×2 (09:15→20:50)
[2020-08-18] MEDS: SODIUM CHLORIDE 0.45% 1,000 ML IV SCH (11:47)
[2020-08-18] MEDS: oxyCODONE/ACETAMINOPHEN 5-325 MG TABLET PO PRN ×2 (14:50→20:59)
[2020-08-18] MEDS ORDERED: glyBURIDE 5 MG TABLET PO ONE (17:58)
[2020-08-18] MEDS: ROSUVASTATIN 10 MG TABLET PO SCH (20:49)
[2020-08-19] MEDS: INSULIN LISPRO 100 UNIT/ML SUBCUT SCH ×6 (01:18→20:44)
[2020-08-19] MEDS: SODIUM CHLORIDE 0.45% 1,000 ML IV SCH (02:22)
[2020-08-19] MEDS: MORPHINE 4 MG/1 ML VIAL IV PRN ×2 (04:32→20:45)
[2020-08-19 05:08] LABS: Basophils % 0.1 % (0.0-0.8); Hematocrit 31.1 VOL% (35.7-47.0); Hemoglobin 9.9 GM/DL (12.0-16.0); Immature Granulocytes % 0.7 %; Immature Granulocytes Absolute 0.14 #; Lymphocytes % 5.5 % (21.3-54.2); Mean Corpuscular HGB Conc 31.8 GM/DL (32-36); Mean Corpuscular Volume 88.6 FL (87-102); Mean Platelet Volume 10.9 FL (9.6-12.0); Monocytes % 4.9 % (1.7-12.7); Neutrophils % 88.8 % (38.7-73.9); Platelet Count 139 T/CUMM (130-400); Red Blood Count 3.51 MC/CUMM (3.8-5.5); Red Cell Distribution Width 13.6 % (9.3-17.3); White Blood Count 18.9 T/CUMM (4-12)
[2020-08-19 05:27] LABS: Albumin 2.7 G/DL (3.4-5.0); Bilirubin,Direct 0.18 MG/DL (0.0-0.20); Bilirubin,Total 0.8 MG/DL (0.2-1.0); Calcium 8.6 MG/DL (8.5-10.1); Osmolality,Calculated 289.8 MOS/KG (273-304); Total Protein 6.3 G/DL (6.4-8.3)
[2020-08-19 05:28] LABS: Blood Urea Nitrogen 40 MG/DL (7-18); Calcium 8.5 MG/DL (8.5-10.1); Estimated Glom Filtration Rate 32 ML/MIN; Glucose 227 MG/DL (74-106)
[2020-08-19] MEDS: INSULIN GLARGINE 100 UNIT/ML SUBCUT SCH (08:36)
[2020-08-19] MEDS: hydrALAZINE 25 MG TABLET PO SCH (08:36)
[2020-08-19] MEDS: glyBURIDE 5 MG TABLET PO SCH (08:36)
[2020-08-19] MEDS: ASPIRIN EC 325 MG TABLET PO SCH (08:36)
[2020-08-19] MEDS: LEVOFLOXACIN 500 MG TABLET PO SCH (08:36)
[2020-08-19] MEDS: CYANOCOBALAMIN 500 MCG TABLET PO SCH (08:37)
[2020-08-19] MEDS: CHLORHEXIDINE 0.12% ORAL RINSE 60 ML BOTTLE SWISH/SPIT SCH ×2 (08:37→20:45)
[2020-08-19] MEDS: LEVOTHYROXINE 75 MCG TABLET PO SCH (08:37)
[2020-08-19] MEDS: oxyCODONE/ACETAMINOPHEN 5-325 MG TABLET PO PRN ×2 (10:00→19:28)
[2020-08-19] MEDS ORDERED: GLUCAGON 1 MG VIAL IM PRN ×2 (10:21)
[2020-08-19] MEDS ORDERED: MAGNESIUM HYDROXIDE SUSP 30 ML UDCUP PO PRN (10:21)
[2020-08-19] MEDS ORDERED: MAGNESIUM SULF RIDER 2 GM in PREMIX 1 EACH IV PRN (10:21)
[2020-08-19] MEDS ORDERED: ONDANSETRON 4 MG/2 ML VIAL IV PRN (10:21)
[2020-08-19] MEDS ORDERED: ALUMINUM/MAGNES/SIMETH MAX STR 30 ML UDCUP PO PRN (10:21)
[2020-08-19] MEDS ORDERED: ACETAMINOPHEN 325 MG TABLET PO PRN (10:21)
[2020-08-19] MEDS ORDERED: MAGNESIUM SULF RIDER 4 GM in PREMIX 1 EACH IV PRN (10:21)
[2020-08-19] MEDS ORDERED: DEXTROSE 50% 25 GM/50 ML VIAL IV PRN ×2 (10:21)
[2020-08-19] MEDS ORDERED: SODIUM CHLOR 0.45% KCL 20 MEQ 20 MEQ/1,000 ML BAG IV SCH (10:30)
[2020-08-19] MEDS ORDERED: hydrALAZINE 25 MG TABLET PO ONE (10:38)
[2020-08-19] MEDS: ASCORBIC ACID 500 MG TABLET PO SCH ×2 (10:42→20:38)
[2020-08-19] MEDS ORDERED: ALBUTEROL/IPRATROPIUM 3 ML NEB RESP TX PRN (11:27)
[2020-08-19] MEDS ORDERED: FUROSEMIDE 40 MG/4 ML VIAL IV ONE (11:27)
[2020-08-19] MEDS: ROSUVASTATIN 20 MG TABLET PO SCH (20:40)
[2020-08-19] MEDS: ISOSORBIDE DINITRATE 20 MG TABLET PO SCH (20:40)
[2020-08-19] MEDS: ZALEPLON 5 MG CAPSULE PO PRN (20:43)
[2020-08-19] MEDS: cloNIDine 0.1 MG TABLET PO SCH (20:44)
[2020-08-20 04:10] LABS: Basophils % 0.1 % (0.0-0.8); Eosinophils % 0.1 % (0.00-10.9); Hematocrit 28.8 VOL% (35.7-47.0); Hemoglobin 9.3 GM/DL (12.0-16.0); Immature Granulocytes % 0.8 %; Immature Granulocytes Absolute 0.11 #; Lymphocytes # 1.1 10*3/uL (1.4-4.0); Lymphocytes % 7.5 % (21.3-54.2); Mean Corpuscular HGB Conc 32.3 GM/DL (32-36); Mean Corpuscular Volume 87.5 FL (87-102); Mean Platelet Volume 11.2 FL (9.6-12.0); Monocytes % 6.8 % (1.7-12.7); Neutrophils % 84.7 % (38.7-73.9); Platelet Count 144 T/CUMM (130-400); Red Blood Count 3.29 MC/CUMM (3.8-5.5); Red Cell Distribution Width 13.6 % (9.3-17.3); White Blood Count 14.4 T/CUMM (4-12)
[2020-08-20 04:27] LABS: Alanine Aminotransferase 13 U/L (13-56); Albumin 2.5 G/DL (3.4-5.0); Alkaline Phosphatase 70 U/L (45-117); Aspartate Amino Transferase 11 U/L (0-37); Bilirubin,Indirect 0.6 MG/DL (0.0-1.0); Blood Urea Nitrogen 41 MG/DL (7-18); Calcium 8.2 MG/DL (8.5-10.1); Estimated Glom Filtration Rate 33 ML/MIN; Glucose 133 MG/DL (74-106); Osmolality,Calculated 286.7 MOS/KG (273-304); Total Protein 6.1 G/DL (6.4-8.3)
[2020-08-20] MEDS ORDERED: FUROSEMIDE 40 MG/4 ML VIAL IV ONE (06:00)
[2020-08-20] MEDS: INSULIN LISPRO 100 UNIT/ML SUBCUT SCH ×4 (09:59→20:19)
[2020-08-20] MEDS: FERROUS SULFATE 325 MG TABLET PO SCH (10:01)
[2020-08-20] MEDS: glyBURIDE 5 MG TABLET PO SCH (10:01)
[2020-08-20] MEDS: ASCORBIC ACID 500 MG TABLET PO SCH ×2 (10:02→20:18)
[2020-08-20] MEDS: PANTOPRAZOLE 40 MG TABLET PO SCH (10:02)
[2020-08-20] MEDS: DOCUSATE SODIUM 100 MG CAPSULE PO SCH (10:02)
[2020-08-20] MEDS: SPIRONOLACTONE 25 MG TABLET PO SCH (10:02)
[2020-08-20] MEDS: ASPIRIN EC 81 MG TABLET PO SCH (10:03)
[2020-08-20] MEDS: LEVOFLOXACIN 500 MG TABLET PO SCH (10:03)
[2020-08-20] MEDS: LEVOTHYROXINE 75 MCG TABLET PO SCH (10:03)
[2020-08-20] MEDS: CYANOCOBALAMIN 500 MCG TABLET PO SCH (10:03)
[2020-08-20] MEDS: ISOSORBIDE DINITRATE 20 MG TABLET PO SCH ×2 (10:41→20:19)
[2020-08-20] MEDS: cloNIDine 0.1 MG TABLET PO SCH (11:03)
[2020-08-20] MEDS: oxyCODONE/ACETAMINOPHEN 5-325 MG TABLET PO PRN ×2 (11:57→19:00)
[2020-08-20] MEDS: CHLORHEXIDINE 0.12% ORAL RINSE 60 ML BOTTLE SWISH/SPIT SCH ×2 (11:58→20:19)
[2020-08-20] MEDS: MORPHINE 4 MG/1 ML VIAL IV PRN (19:20)
[2020-08-20] MEDS: ROSUVASTATIN 20 MG TABLET PO SCH (20:18)
[2020-08-20] MEDS: ZALEPLON 5 MG CAPSULE PO PRN (20:18)
[2020-08-21 04:25] LABS: Basophils % 0.2 % (0.0-0.8); Eosinophils % 0.2 % (0.00-10.9); Hematocrit 29.6 VOL% (35.7-47.0); Hemoglobin 9.5 GM/DL (12.0-16.0); Immature Granulocytes % 0.7 %; Immature Granulocytes Absolute 0.08 #; Lymphocytes % 8.3 % (21.3-54.2); Mean Corpuscular HGB Conc 32.1 GM/DL (32-36); Mean Corpuscular Volume 87.8 FL (87-102); Mean Platelet Volume 10.5 FL (9.6-12.0); Monocytes % 5.2 % (1.7-12.7); Neutrophils % 85.4 % (38.7-73.9); Platelet Count 187 T/CUMM (130-400); Red Blood Count 3.37 MC/CUMM (3.8-5.5); Red Cell Distribution Width 13.5 % (9.3-17.3); White Blood Count 12.2 T/CUMM (4-12)
[2020-08-21 04:56] LABS: Alanine Aminotransferase 12 U/L (13-56); Albumin 2.6 G/DL (3.4-5.0); Alkaline Phosphatase 77 U/L (45-117); Aspartate Amino Transferase 11 U/L (0-37); Bilirubin,Indirect 0.3 MG/DL (0.0-1.0); Blood Urea Nitrogen 50 MG/DL (7-18); Calcium 8.4 MG/DL (8.5-10.1); Estimated Glom Filtration Rate 29 ML/MIN; Glucose 249 MG/DL (74-106); Osmolality,Calculated 295.7 MOS/KG (273-304); Total Protein 6.6 G/DL (6.4-8.3)
[2020-08-21] MEDS: FERROUS SULFATE 325 MG TABLET PO SCH (08:43)
[2020-08-21] MEDS: ASCORBIC ACID 500 MG TABLET PO SCH ×2 (08:43→21:24)
[2020-08-21] MEDS: LEVOTHYROXINE 75 MCG TABLET PO SCH (08:44)
[2020-08-21] MEDS: CYANOCOBALAMIN 500 MCG TABLET PO SCH (08:44)
[2020-08-21] MEDS: SPIRONOLACTONE 25 MG TABLET PO SCH (08:45)
[2020-08-21] MEDS: DOCUSATE SODIUM 100 MG CAPSULE PO SCH (08:45)
[2020-08-21] MEDS: glyBURIDE 5 MG TABLET PO SCH (08:46)
[2020-08-21] MEDS: ASPIRIN EC 81 MG TABLET PO SCH (08:46)
[2020-08-21] MEDS: LEVOFLOXACIN 500 MG TABLET PO SCH (08:47)
[2020-08-21] MEDS: PANTOPRAZOLE 40 MG TABLET PO SCH (08:47)
[2020-08-21] MEDS: ISOSORBIDE DINITRATE 20 MG TABLET PO SCH ×2 (08:47→21:25)
[2020-08-21] MEDS: INSULIN LISPRO 100 UNIT/ML SUBCUT SCH ×4 (08:48→21:46)
[2020-08-21] MEDS: FUROSEMIDE 40 MG/4 ML VIAL IV SCH ×2 (08:49→17:21)
[2020-08-21] MEDS: CHLORHEXIDINE 0.12% ORAL RINSE 60 ML BOTTLE SWISH/SPIT SCH ×2 (08:49→21:49)
[2020-08-21] MEDS ORDERED: INSULIN GLARGINE 100 UNIT/ML SUBCUT SCH (09:00)
[2020-08-21] MEDS: oxyCODONE/ACETAMINOPHEN 5-325 MG TABLET PO PRN ×2 (14:06→21:25)
[2020-08-21] MEDS: ROSUVASTATIN 20 MG TABLET PO SCH (21:24)
[2020-08-21] MEDS: ZALEPLON 5 MG CAPSULE PO PRN (21:25)
[2020-08-22 05:52] LABS: Basophils % 0.2 % (0.0-0.8); Eosinophils # 0.1 10*3/uL (0.0-0.87); Eosinophils % 0.5 % (0.00-10.9); Hematocrit 30.3 VOL% (35.7-47.0); Hemoglobin 9.8 GM/DL (12.0-16.0); Immature Granulocytes % 0.8 %; Immature Granulocytes Absolute 0.09 #; Lymphocytes # 1.2 10*3/uL (1.4-4.0); Lymphocytes % 10.9 % (21.3-54.2); Mean Corpuscular HGB Conc 32.3 GM/DL (32-36); Mean Corpuscular Volume 87.1 FL (87-102); Mean Platelet Volume 10.2 FL (9.6-12.0); Monocytes % 7.7 % (1.7-12.7); Neutrophils % 79.9 % (38.7-73.9); Platelet Count 222 T/CUMM (130-400); Red Blood Count 3.48 MC/CUMM (3.8-5.5); Red Cell Distribution Width 13.6 % (9.3-17.3); White Blood Count 11.4 T/CUMM (4-12)
[2020-08-22 06:29] LABS: Calcium 8.8 MG/DL (8.5-10.1); Osmolality,Calculated 301.8 MOS/KG (273-304)
[2020-08-22] MEDS ORDERED: INSULIN GLARGINE 100 UNIT/ML SUBCUT SCH (06:44)
[2020-08-22] MEDS ORDERED: INSULIN LISPRO 100 UNIT/ML SUBCUT SCH (07:00)
[2020-08-22] MEDS: SPIRONOLACTONE 25 MG TABLET PO SCH (09:22)
[2020-08-22] MEDS: LEVOTHYROXINE 75 MCG TABLET PO SCH (09:22)
[2020-08-22] MEDS: FERROUS SULFATE 325 MG TABLET PO SCH (09:22)
[2020-08-22] MEDS: ISOSORBIDE DINITRATE 20 MG TABLET PO SCH ×2 (09:23→21:31)
[2020-08-22] MEDS: LEVOFLOXACIN 500 MG TABLET PO SCH (09:23)
[2020-08-22] MEDS: ASPIRIN EC 81 MG TABLET PO SCH (09:23)
[2020-08-22] MEDS: PANTOPRAZOLE 40 MG TABLET PO SCH (09:23)
[2020-08-22] MEDS: ASCORBIC ACID 500 MG TABLET PO SCH ×2 (09:24→21:34)
[2020-08-22] MEDS: glyBURIDE 5 MG TABLET PO SCH (09:24)
[2020-08-22] MEDS: oxyCODONE/ACETAMINOPHEN 5-325 MG TABLET PO PRN ×3 (09:24→21:32)
[2020-08-22] MEDS: CYANOCOBALAMIN 500 MCG TABLET PO SCH (09:24)
[2020-08-22] MEDS: FUROSEMIDE 40 MG/4 ML VIAL IV SCH ×2 (09:29→15:26)
[2020-08-22] MEDS: DOCUSATE SODIUM 100 MG CAPSULE PO SCH (09:38)
[2020-08-22] MEDS: INSULIN LISPRO 100 UNIT/ML SUBCUT SCH ×4 (09:38→22:35)
[2020-08-22] MEDS: CHLORHEXIDINE 0.12% ORAL RINSE 60 ML BOTTLE SWISH/SPIT SCH ×2 (10:49→22:35)
[2020-08-22] MEDS: ROSUVASTATIN 20 MG TABLET PO SCH (21:33)
[2020-08-22] MEDS: ZALEPLON 5 MG CAPSULE PO PRN (21:33)
[2020-08-22] MEDS: INSULIN GLARGINE 100 UNIT/ML SUBCUT SCH (21:34)
[2020-08-23 06:55] LABS: Basophils % 0.2 % (0.0-0.8); Eosinophils # 0.2 10*3/uL (0.0-0.87); Eosinophils % 1.7 % (0.00-10.9); Hematocrit 28.4 VOL% (35.7-47.0); Hemoglobin 9.2 GM/DL (12.0-16.0); Immature Granulocytes % 0.7 %; Immature Granulocytes Absolute 0.08 #; Lymphocytes # 1.5 10*3/uL (1.4-4.0); Lymphocytes % 13.5 % (21.3-54.2); Mean Corpuscular HGB Conc 32.4 GM/DL (32-36); Mean Corpuscular Volume 86.9 FL (87-102); Mean Platelet Volume 10.9 FL (9.6-12.0); Monocytes % 7.6 % (1.7-12.7); Neutrophils % 76.3 % (38.7-73.9); Platelet Count 238 T/CUMM (130-400); Red Blood Count 3.27 MC/CUMM (3.8-5.5); Red Cell Distribution Width 13.7 % (9.3-17.3); White Blood Count 10.9 T/CUMM (4-12)
[2020-08-23 07:18] LABS: Alanine Aminotransferase 15 U/L (13-56); Albumin 2.5 G/DL (3.4-5.0); Alkaline Phosphatase 85 U/L (45-117); Aspartate Amino Transferase 10 U/L (0-37); Bilirubin,Indirect 1.1 MG/DL (0.0-1.0); Blood Urea Nitrogen 59 MG/DL (7-18); Calcium 8.6 MG/DL (8.5-10.1); Estimated Glom Filtration Rate 22 ML/MIN; Glucose 263 MG/DL (74-106); Osmolality,Calculated 302.5 MOS/KG (273-304); Total Protein 6.4 G/DL (6.4-8.3)
[2020-08-23] MEDS: CYANOCOBALAMIN 500 MCG TABLET PO SCH (09:19)
[2020-08-23] MEDS: ASCORBIC ACID 500 MG TABLET PO SCH ×2 (09:19→21:05)
[2020-08-23] MEDS: glyBURIDE 5 MG TABLET PO SCH (09:19)
[2020-08-23] MEDS: DOCUSATE SODIUM 100 MG CAPSULE PO SCH (09:19)
[2020-08-23] MEDS: FERROUS SULFATE 325 MG TABLET PO SCH (09:19)
[2020-08-23] MEDS: LEVOFLOXACIN 500 MG TABLET PO SCH (09:20)
[2020-08-23] MEDS: ASPIRIN EC 81 MG TABLET PO SCH (09:20)
[2020-08-23] MEDS: PANTOPRAZOLE 40 MG TABLET PO SCH (09:20)
[2020-08-23] MEDS: FUROSEMIDE 40 MG/4 ML VIAL IV SCH (09:20)
[2020-08-23] MEDS: ISOSORBIDE DINITRATE 20 MG TABLET PO SCH ×2 (09:20→21:05)
[2020-08-23] MEDS: LEVOTHYROXINE 75 MCG TABLET PO SCH (09:20)
[2020-08-23] MEDS: INSULIN GLARGINE 100 UNIT/ML SUBCUT SCH ×2 (09:22→21:07)
[2020-08-23] MEDS: SPIRONOLACTONE 25 MG TABLET PO SCH (09:25)
[2020-08-23] MEDS: INSULIN LISPRO 100 UNIT/ML SUBCUT SCH ×4 (10:09→21:06)
[2020-08-23] MEDS: CHLORHEXIDINE 0.12% ORAL RINSE 60 ML BOTTLE SWISH/SPIT SCH ×2 (10:19→21:04)
[2020-08-23] MEDS ORDERED: INSULIN GLARGINE 100 UNIT/ML SUBCUT ONE (10:20)
[2020-08-23] MEDS: ROSUVASTATIN 20 MG TABLET PO SCH (21:05)
[2020-08-24 05:12] LABS: Basophils % 0.3 % (0.0-0.8); Eosinophils # 0.2 10*3/uL (0.0-0.87); Hematocrit 28.1 VOL% (35.7-47.0); Immature Granulocytes % 0.6 %; Immature Granulocytes Absolute 0.07 #; Lymphocytes # 1.5 10*3/uL (1.4-4.0); Lymphocytes % 12.7 % (21.3-54.2); Mean Corpuscular Volume 88.1 FL (87-102); Neutrophils % 77.4 % (38.7-73.9); Platelet Count 277 T/CUMM (130-400); Red Blood Count 3.19 MC/CUMM (3.8-5.5); Red Cell Distribution Width 13.7 % (9.3-17.3); White Blood Count 11.9 T/CUMM (4-12)
[2020-08-24 05:56] LABS: Alanine Aminotransferase 16 U/L (13-56); Albumin 2.7 G/DL (3.4-5.0); Alkaline Phosphatase 87 U/L (45-117); Aspartate Amino Transferase 13 U/L (0-37); Bilirubin,Indirect 0.4 MG/DL (0.0-1.0); Blood Urea Nitrogen 58 MG/DL (7-18); Estimated Glom Filtration Rate 22 ML/MIN; Glucose 109 MG/DL (74-106); Osmolality,Calculated 295.4 MOS/KG (273-304); Total Protein 6.5 G/DL (6.4-8.3)
[2020-08-24 06:00] LABS: Troponin I 0.739 NG/ML (0.00-0.045)
[2020-08-24] MEDS: FERROUS SULFATE 325 MG TABLET PO SCH (08:38)
[2020-08-24] MEDS: DOCUSATE SODIUM 100 MG CAPSULE PO SCH (08:38)
[2020-08-24] MEDS: SPIRONOLACTONE 25 MG TABLET PO SCH (08:38)
[2020-08-24] MEDS: glyBURIDE 5 MG TABLET PO SCH (08:38)
[2020-08-24] MEDS: ASCORBIC ACID 500 MG TABLET PO SCH ×2 (08:38→21:44)
[2020-08-24] MEDS: FUROSEMIDE 40 MG TABLET PO SCH (08:38)
[2020-08-24] MEDS: ASPIRIN EC 81 MG TABLET PO SCH (08:38)
[2020-08-24] MEDS: CYANOCOBALAMIN 500 MCG TABLET PO SCH (08:39)
[2020-08-24] MEDS: INSULIN GLARGINE 100 UNIT/ML SUBCUT SCH ×2 (08:39→21:45)
[2020-08-24] MEDS: PANTOPRAZOLE 40 MG TABLET PO SCH (08:39)
[2020-08-24] MEDS: CHLORHEXIDINE 0.12% ORAL RINSE 60 ML BOTTLE SWISH/SPIT SCH ×2 (08:39→21:45)
[2020-08-24] MEDS: LEVOFLOXACIN 500 MG TABLET PO SCH (08:39)
[2020-08-24] MEDS: INSULIN LISPRO 100 UNIT/ML SUBCUT SCH ×4 (08:56→21:45)
[2020-08-24] MEDS ORDERED: FUROSEMIDE 20 MG TABLET PO SCH (09:00)
[2020-08-24] MEDS: LEVOTHYROXINE 75 MCG TABLET PO SCH (09:28)
[2020-08-24] MEDS: ISOSORBIDE DINITRATE 20 MG TABLET PO SCH ×2 (09:28→21:44)
[2020-08-24] MEDS: ZALEPLON 5 MG CAPSULE PO PRN (21:44)
[2020-08-24] MEDS: ROSUVASTATIN 20 MG TABLET PO SCH (21:44)
[2020-08-25 05:44] LABS: Calcium 8.7 MG/DL (8.5-10.1); Osmolality,Calculated 292.5 MOS/KG (273-304)
[2020-08-25] MEDS: INSULIN LISPRO 100 UNIT/ML SUBCUT SCH ×2 (08:47→11:56)
[2020-08-25] MEDS: INSULIN GLARGINE 100 UNIT/ML SUBCUT SCH (09:38)
[2020-08-25] MEDS: CHLORHEXIDINE 0.12% ORAL RINSE 60 ML BOTTLE SWISH/SPIT SCH (09:38)
[2020-08-25] MEDS: ASPIRIN EC 81 MG TABLET PO SCH (09:39)
[2020-08-25] MEDS: ISOSORBIDE DINITRATE 20 MG TABLET PO SCH (09:39)
[2020-08-25] MEDS: FUROSEMIDE 40 MG TABLET PO SCH (09:40)
[2020-08-25] MEDS: PANTOPRAZOLE 40 MG TABLET PO SCH (09:40)
[2020-08-25] MEDS: FERROUS SULFATE 325 MG TABLET PO SCH (09:40)
[2020-08-25] MEDS: LEVOTHYROXINE 75 MCG TABLET PO SCH (09:40)
[2020-08-25] MEDS: ASCORBIC ACID 500 MG TABLET PO SCH (09:40)
[2020-08-25] MEDS: CYANOCOBALAMIN 500 MCG TABLET PO SCH (09:40)
[2020-08-25] MEDS: SPIRONOLACTONE 25 MG TABLET PO SCH (09:40)
[2020-08-25] MEDS: POTASSIUM CHLORIDE 20 MEQ TABLET PO PRN ×2 (09:40→15:15)
[2020-08-25] MEDS: DOCUSATE SODIUM 100 MG CAPSULE PO SCH (09:40)
[2020-08-25] MEDS: glyBURIDE 5 MG TABLET PO SCH (09:40)
[2020-08-25] MEDS: oxyCODONE/ACETAMINOPHEN 5-325 MG TABLET PO PRN (09:43)
[2020-08-25 11:58] VITALS: BP 148/63
== END 2020-08-25 15:30 | disposition home health service (06) | DRG 235 ==
LOC: N.TELEN 09:28 → N.CVR 08-16 11:44 → N.ICU 08-17 10:55 → N.TELES 08-21 11:35

== ENCOUNTER 2021-10-20 08:43 | Inpatient (IN) ==
[2021-10-20] MEDS ORDERED: hydrALAZINE 20 MG/1 ML VIAL IV PRN (10:12)
[2021-10-20] MEDS ORDERED: DEXTROSE 50% 25 GM/50 ML SYRINGE IV PRN (10:12)
[2021-10-20] MEDS ORDERED: ONDANSETRON 4 MG/2 ML VIAL IV PRN (10:12)
[2021-10-20] MEDS ORDERED: GLUCAGON 1 MG VIAL IM PRN (10:12)
[2021-10-20] MEDS ORDERED: CARBOXYMETHYLCELLULOSE 1% OPH SOLN RIGHT EYE PRN (10:34)
[2021-10-20 11:23] LABS: Albumin 2.8 G/DL (3.4-5.0); Bilirubin,Total 1.2 MG/DL (0.20-1.00); Calcium 8.5 MG/DL (8.5-10.1); Osmolality,Calculated 294.8 MOS/KG (273-304); Potassium 4.8 MMOL/L (3.5-5.1)
[2021-10-20] MEDS: INSULIN LISPRO 100 UNIT/ML SUBCUT SCH ×3 (11:38→21:23)
[2021-10-20] MEDS: ENOXAPARIN 40 MG/0.4 ML SYRINGE SUBCUT SCH (11:39)
[2021-10-20 12:26] LABS: Basophils # 0.1 10*3/uL (0.0-0.2); Basophils % 0.4 % (0.0-0.8); Eosinophils # 0.5 10*3/uL (0.0-0.87); Hematocrit 35.6 VOL% (35.7-47.0); Hemoglobin 11.4 GM/DL (12.0-16.0); Immature Granulocytes % 0.8 %; Immature Granulocytes Absolute 0.13 #; Lymphocytes # 0.7 10*3/uL (1.4-4.0); Lymphocytes % 4.3 % (21.3-54.2); Mean Corpuscular Volume 86.6 FL (87-102); Monocytes % 2.4 % (1.7-12.7); Neutrophils % 89.1 % (38.7-73.9); Platelet Count 298 T/CUMM (130-400); Red Blood Count 4.11 MC/CUMM (3.8-5.5); Red Cell Distribution Width 13.3 % (9.3-17.3); White Blood Count 17.2 T/CUMM (4-12)
[2021-10-20 12:46] LABS: Eosinophils 5 % (0-10); Hypochromia Slight; Lymphocytes 2 % (20-55); Microcytosis Slight; Platelet Estimate Adequate; Segmented Neutrophils 91 % (50-85); Total Cells Counted 100
[2021-10-20] MEDS: hydrALAZINE 20 MG/1 ML VIAL IV PRN ×2 (16:01→21:23)
[2021-10-20] MEDS: carvediloL 3.125 MG TABLET PO SCH (17:19)
[2021-10-20] MEDS: MORPHINE 2 MG/1 ML SYRINGE IV PRN (20:47)
[2021-10-20] MEDS ORDERED: LORazepam 2 MG/1 ML VIAL IV ONE (22:20)
[2021-10-21 05:27] LABS: Basophils # 0.1 10*3/uL (0.0-0.2); Basophils % 0.6 % (0.0-0.8); Eosinophils # 0.5 10*3/uL (0.0-0.87); Eosinophils % 3.9 % (0.00-10.9); Hematocrit 38.2 VOL% (35.7-47.0); Immature Granulocytes % 0.4 %; Immature Granulocytes Absolute 0.06 #; Lymphocytes # 1.4 10*3/uL (1.4-4.0); Lymphocytes % 9.9 % (21.3-54.2); Mean Corpuscular HGB Conc 31.4 GM/DL (32-36); Mean Corpuscular Volume 89.5 FL (87-102); Mean Platelet Volume 10.6 FL (9.6-12.0); Monocytes % 3.2 % (1.7-12.7); Platelet Count 287 T/CUMM (130-400); Red Blood Count 4.27 MC/CUMM (3.8-5.5); Red Cell Distribution Width 13.8 % (9.3-17.3); White Blood Count 13.7 T/CUMM (4-12)
[2021-10-21] MEDS: LEVOTHYROXINE 75 MCG TABLET PO SCH (05:38)
[2021-10-21 05:47] LABS: Calcium 9.2 MG/DL (8.5-10.1); Osmolality,Calculated 292.7 MOS/KG (273-304); Potassium 4.5 MMOL/L (3.5-5.1)
[2021-10-21 06:03] LABS: Free T4 (Free Thyroxine) 1.55 NG/DL (0.76-1.46)
[2021-10-21] MEDS: INSULIN LISPRO 100 UNIT/ML SUBCUT SCH ×4 (08:26→20:54)
[2021-10-21] MEDS: PANTOPRAZOLE 40 MG TABLET PO SCH (08:27)
[2021-10-21] MEDS: ATORVASTATIN 40 MG TABLET PO SCH (08:27)
[2021-10-21] MEDS: SPIRONOLACTONE 25 MG TABLET PO SCH (08:27)
[2021-10-21] MEDS: carvediloL 3.125 MG TABLET PO SCH ×2 (08:27→18:03)
[2021-10-21] MEDS: ENOXAPARIN 40 MG/0.4 ML SYRINGE SUBCUT SCH (11:33)
[2021-10-21] MEDS: INSULIN GLARGINE 100 UNIT/ML SUBCUT SCH (20:54)
[2021-10-22] MEDS: MORPHINE 2 MG/1 ML SYRINGE IV PRN ×3 (03:40→20:29)
[2021-10-22 06:12] LABS: Basophils # 0.1 10*3/uL (0.0-0.2); Eosinophils # 1.1 10*3/uL (0.0-0.87); Eosinophils % 9.7 % (0.00-10.9); Hematocrit 35.2 VOL% (35.7-47.0); Hemoglobin 11.1 GM/DL (12.0-16.0); Lymphocytes # 1.7 10*3/uL (1.4-4.0); Lymphocytes % 14.7 % (21.3-54.2); Mean Corpuscular HGB Conc 31.5 GM/DL (32-36); Mean Corpuscular Volume 89.6 FL (87-102); Monocytes % 5.8 % (1.7-12.7); Neutrophils % 68.4 % (38.7-73.9); Platelet Count 242 T/CUMM (130-400); Red Blood Count 3.93 MC/CUMM (3.8-5.5); Red Cell Distribution Width 13.2 % (9.3-17.3); White Blood Count 11.8 T/CUMM (4-12)
[2021-10-22] MEDS: LEVOTHYROXINE 75 MCG TABLET PO SCH (06:34)
[2021-10-22 06:49] LABS: Osmolality,Calculated 288.7 MOS/KG (273-304)
[2021-10-22] MEDS: PANTOPRAZOLE 40 MG TABLET PO SCH (08:48)
[2021-10-22] MEDS: INSULIN LISPRO 100 UNIT/ML SUBCUT SCH ×4 (08:48→21:00)
[2021-10-22] MEDS: ATORVASTATIN 40 MG TABLET PO SCH (08:49)
[2021-10-22] MEDS: carvediloL 3.125 MG TABLET PO SCH ×2 (08:49→17:20)
[2021-10-22] MEDS: SPIRONOLACTONE 25 MG TABLET PO SCH (08:49)
[2021-10-22] MEDS ORDERED: LACTATED RINGERS 500 ML IV ONE (09:23)
[2021-10-22] MEDS ORDERED: HYDROmorphone 2 MG/1 ML VIAL IV ONE (10:54)
[2021-10-22] MEDS ORDERED: LIDOCAINE 1% 5 ML VIAL ONE (12:50)
[2021-10-22] MEDS ORDERED: DEXAMETHASONE 4 MG/1 ML VIAL ONE (12:50)
[2021-10-22] MEDS ORDERED: ROPIVACAINE 0.5% 30 ML VIAL ONE (12:50)
[2021-10-22] MEDS ORDERED: ETOMIDATE 40 MG/20 ML VIAL IV ONE (12:53)
[2021-10-22] MEDS ORDERED: PHENYLEPHRINE 1 MG/10 ML SYRINGE IV ONE (12:53)
[2021-10-22] MEDS ORDERED: SUCCINYLCHOLINE 200 MG/10 ML VIAL ONE (12:53)
[2021-10-22] MEDS ORDERED: fentaNYL 100 MCG/2 ML VIAL ONE (12:53)
[2021-10-22] MEDS ORDERED: propofoL 200 MG/20 ML VIAL IV ONE (12:53)
[2021-10-22] MEDS ORDERED: ROCURONIUM 50 MG/5 ML VIAL IV ONE (12:53)
[2021-10-22] MEDS ORDERED: SEVOFLURANE 1 UNIT/15 MINUTE INH ONE (12:53)
[2021-10-22] MEDS ORDERED: LIDOCAINE 2% 5 ML VIAL ONE (12:53)
[2021-10-22] MEDS ORDERED: MIDAZOLAM 2 MG/2 ML VIAL ONE (12:53)
[2021-10-22] MEDS ORDERED: TRANEXAMIC ACID 1,000 MG/10 ML VIAL ONE (14:02)
[2021-10-22] MEDS ORDERED: ONDANSETRON 4 MG/2 ML VIAL ONE (14:37)
[2021-10-22] MEDS ORDERED: HYDROmorphone 2 MG/1 ML VIAL IV PRN (16:06)
[2021-10-22] MEDS ORDERED: ONDANSETRON 4 MG/2 ML VIAL IV PRN (16:06)
[2021-10-22] MEDS: hydrALAZINE 20 MG/1 ML VIAL IV PRN (16:14)
[2021-10-22 17:15] LABS: Basophils # 0.1 10*3/uL (0.0-0.2); Basophils % 0.5 % (0.0-0.8); Eosinophils # 0.2 10*3/uL (0.0-0.87); Eosinophils % 0.8 % (0.00-10.9); Hematocrit 37.6 VOL% (35.7-47.0); Hemoglobin 11.8 GM/DL (12.0-16.0); Immature Granulocytes % 0.8 %; Immature Granulocytes Absolute 0.16 #; Lymphocytes % 5.2 % (21.3-54.2); Mean Corpuscular HGB Conc 31.4 GM/DL (32-36); Mean Corpuscular Volume 88.7 FL (87-102); Mean Platelet Volume 10.5 FL (9.6-12.0); Monocytes % 2.8 % (1.7-12.7); Neutrophils % 89.9 % (38.7-73.9); Platelet Count 239 T/CUMM (130-400); Red Blood Count 4.24 MC/CUMM (3.8-5.5); Red Cell Distribution Width 13.2 % (9.3-17.3); White Blood Count 19.9 T/CUMM (4-12)
[2021-10-22] MEDS: INSULIN GLARGINE 100 UNIT/ML SUBCUT SCH (21:00)
[2021-10-22] MEDS ORDERED: LORazepam 2 MG/1 ML VIAL IV ONE (23:49)
[2021-10-23] MEDS ORDERED: LORazepam 2 MG/1 ML VIAL ONE (00:05)
[2021-10-23] MEDS: MORPHINE 2 MG/1 ML SYRINGE IV PRN (01:56)
[2021-10-23] MEDS: LEVOTHYROXINE 75 MCG TABLET PO SCH (06:08)
[2021-10-23 07:52] LABS: Basophils # 0.1 10*3/uL (0.0-0.2); Basophils % 0.3 % (0.0-0.8); Hematocrit 34.2 VOL% (35.7-47.0); Lymphocytes % 5.5 % (21.3-54.2); Mean Corpuscular HGB Conc 32.2 GM/DL (32-36); Mean Corpuscular Volume 87.2 FL (87-102); Mean Platelet Volume 11.3 FL (9.6-12.0); Neutrophils % 88.7 % (38.7-73.9); Platelet Count 234 T/CUMM (130-400); Red Blood Count 3.92 MC/CUMM (3.8-5.5); Red Cell Distribution Width 13.6 % (9.3-17.3); White Blood Count 17.1 T/CUMM (4-12)
[2021-10-23] MEDS: carvediloL 3.125 MG TABLET PO SCH ×2 (08:02→16:58)
[2021-10-23] MEDS: ATORVASTATIN 40 MG TABLET PO SCH (08:02)
[2021-10-23] MEDS: SPIRONOLACTONE 25 MG TABLET PO SCH (08:02)
[2021-10-23] MEDS: SERTRALINE 25 MG TABLET PO SCH (08:02)
[2021-10-23] MEDS: PANTOPRAZOLE 40 MG TABLET PO SCH (08:02)
[2021-10-23 08:11] LABS: Calcium 9.1 MG/DL (8.5-10.1); Osmolality,Calculated 299.5 MOS/KG (273-304); Potassium 4.4 MMOL/L (3.5-5.1)
[2021-10-23] MEDS: INSULIN LISPRO 100 UNIT/ML SUBCUT SCH ×4 (08:48→21:40)
[2021-10-23] MEDS ORDERED: TUBERCULIN SKIN TEST 0.1 ML SYRINGE INTRADERM ONE (11:00)
[2021-10-23] MEDS: INSULIN GLARGINE 100 UNIT/ML SUBCUT SCH (21:34)
[2021-10-24 05:38] LABS: Basophils # 0.1 10*3/uL (0.0-0.2); Basophils % 0.6 % (0.0-0.8); Eosinophils # 0.1 10*3/uL (0.0-0.87); Eosinophils % 0.8 % (0.00-10.9); Hematocrit 31.7 VOL% (35.7-47.0); Hemoglobin 9.8 GM/DL (12.0-16.0); Lymphocytes # 1.3 10*3/uL (1.4-4.0); Lymphocytes % 8.4 % (21.3-54.2); Mean Corpuscular HGB Conc 30.9 GM/DL (32-36); Mean Corpuscular Volume 89.8 FL (87-102); Mean Platelet Volume 11.9 FL (9.6-12.0); Monocytes % 7.2 % (1.7-12.7); Neutrophils % 82.3 % (38.7-73.9); Platelet Count 200 T/CUMM (130-400); Red Blood Count 3.53 MC/CUMM (3.8-5.5); Red Cell Distribution Width 13.6 % (9.3-17.3); White Blood Count 15.8 T/CUMM (4-12)
[2021-10-24 05:52] LABS: Osmolality,Calculated 296.7 MOS/KG (273-304); Potassium 4.7 MMOL/L (3.5-5.1)
[2021-10-24] MEDS: LEVOTHYROXINE 75 MCG TABLET PO SCH (06:07)
[2021-10-24] MEDS: SERTRALINE 25 MG TABLET PO SCH (08:43)
[2021-10-24] MEDS: PANTOPRAZOLE 40 MG TABLET PO SCH (08:43)
[2021-10-24] MEDS: SPIRONOLACTONE 25 MG TABLET PO SCH (08:43)
[2021-10-24] MEDS: carvediloL 3.125 MG TABLET PO SCH ×2 (08:43→16:19)
[2021-10-24] MEDS: ATORVASTATIN 40 MG TABLET PO SCH (08:44)
[2021-10-24] MEDS: INSULIN LISPRO 100 UNIT/ML SUBCUT SCH ×4 (08:44→21:46)
[2021-10-24] MEDS: MORPHINE 10 MG/1 ML VIAL IM PRN (09:43)
[2021-10-24] MEDS: ENOXAPARIN 30 MG/0.3 ML SYRINGE SUBCUT SCH (10:35)
[2021-10-24 11:07] LABS: Bacteria,Urine Many /HPF (Few); Bilirubin,Urine Negative (Negative); Blood, Urine Moderate mg/dL (Negative); Glucose,Urine (UA) >=500 mg/dL (Negative); Ketones,Urine 5 mg/dL (Negative); Mucus,Urine Occasional /LPF (Occasional); Nitrite,Urine Negative (Negative); Protein,Urine >=500 MG/DL; RBC,Urine 17 /HPF (0-4); Squamous Epithelial Cell,Urine Occasional /HPF (0-10); Urine Appearance CLOUDY (Clear); Urine Color Amber (Yellow); Urine Specific Gravity 1.016 (1.001-1.035); Urine Urobilinogen < 2.0 EU/DL (<2.0)
[2021-10-24] MEDS: INSULIN GLARGINE 100 UNIT/ML SUBCUT SCH (21:47)
[2021-10-25] MEDS: LEVOTHYROXINE 75 MCG TABLET PO SCH (06:50)
[2021-10-25 06:52] LABS: Basophils # 0.1 10*3/uL (0.0-0.2); Basophils % 0.8 % (0.0-0.8); Eosinophils # 0.6 10*3/uL (0.0-0.87); Eosinophils % 4.6 % (0.00-10.9); Hematocrit 30.6 VOL% (35.7-47.0); Hemoglobin 9.6 GM/DL (12.0-16.0); Immature Granulocytes % 0.6 %; Immature Granulocytes Absolute 0.08 #; Lymphocytes # 1.5 10*3/uL (1.4-4.0); Lymphocytes % 11.2 % (21.3-54.2); Mean Corpuscular HGB Conc 31.4 GM/DL (32-36); Mean Corpuscular Volume 87.7 FL (87-102); Mean Platelet Volume 11.4 FL (9.6-12.0); Monocytes % 8.8 % (1.7-12.7); Platelet Count 193 T/CUMM (130-400); Red Blood Count 3.49 MC/CUMM (3.8-5.5); Red Cell Distribution Width 13.3 % (9.3-17.3); White Blood Count 13.1 T/CUMM (4-12)
[2021-10-25 07:24] LABS: Albumin 2.3 G/DL (3.4-5.0); Bilirubin,Total 0.5 MG/DL (0.20-1.00); Calcium 8.6 MG/DL (8.5-10.1); Osmolality,Calculated 297.8 MOS/KG (273-304); Potassium 4.8 MMOL/L (3.5-5.1); Total Protein 6.9 G/DL (6.4-8.2)
[2021-10-25] MEDS: carvediloL 3.125 MG TABLET PO SCH ×2 (08:46→16:00)
[2021-10-25] MEDS: SERTRALINE 25 MG TABLET PO SCH (08:46)
[2021-10-25] MEDS: SPIRONOLACTONE 25 MG TABLET PO SCH (08:46)
[2021-10-25] MEDS: INSULIN LISPRO 100 UNIT/ML SUBCUT SCH ×4 (08:46→20:34)
[2021-10-25] MEDS: PANTOPRAZOLE 40 MG TABLET PO SCH (08:46)
[2021-10-25] MEDS: ATORVASTATIN 40 MG TABLET PO SCH (08:46)
[2021-10-25] MEDS: ENOXAPARIN 30 MG/0.3 ML SYRINGE SUBCUT SCH (09:39)
[2021-10-25] MEDS ORDERED: DEXTROSE 5% NACL 0.22% 1,000 ML IV SCH (12:00)
[2021-10-25] MEDS: DEXTROSE 5% NACL 0.45% 1,000 ML IV SCH ×2 (12:45→22:32)
[2021-10-25] MEDS: CEFEPIME 1,000 MG in SODIUM CHLORIDE 0.9% 100 ML IV SCH (18:11)
[2021-10-25] MEDS: INSULIN GLARGINE 100 UNIT/ML SUBCUT SCH (20:35)
[2021-10-26] MEDS: CEFEPIME 1,000 MG in SODIUM CHLORIDE 0.9% 100 ML IV SCH (05:30)
[2021-10-26] MEDS: DOCUSATE SODIUM 100 MG CAPSULE PO PRN (05:31)
[2021-10-26] MEDS: LEVOTHYROXINE 75 MCG TABLET PO SCH (05:31)
[2021-10-26 07:34] LABS: Basophils # 0.1 10*3/uL (0.0-0.2); Basophils % 0.6 % (0.0-0.8); Eosinophils # 0.4 10*3/uL (0.0-0.87); Eosinophils % 3.9 % (0.00-10.9); Hematocrit 28.6 VOL% (35.7-47.0); Hemoglobin 9.2 GM/DL (12.0-16.0); Immature Granulocytes % 0.7 %; Immature Granulocytes Absolute 0.08 #; Lymphocytes # 1.1 10*3/uL (1.4-4.0); Lymphocytes % 9.4 % (21.3-54.2); Mean Corpuscular HGB Conc 32.2 GM/DL (32-36); Mean Corpuscular Volume 86.9 FL (87-102); Mean Platelet Volume 11.4 FL (9.6-12.0); Neutrophils % 77.4 % (38.7-73.9); Platelet Count 214 T/CUMM (130-400); Red Blood Count 3.29 MC/CUMM (3.8-5.5); Red Cell Distribution Width 13.2 % (9.3-17.3); White Blood Count 11.4 T/CUMM (4-12)
[2021-10-26] MEDS: DEXTROSE 5% NACL 0.45% 1,000 ML IV SCH (07:49)
[2021-10-26 07:55] LABS: Albumin 1.9 G/DL (3.4-5.0); Bilirubin,Total 0.6 MG/DL (0.20-1.00); Calcium 7.8 MG/DL (8.5-10.1); Osmolality,Calculated 306.2 MOS/KG (273-304); Total Protein 6.7 G/DL (6.4-8.2)
[2021-10-26] MEDS: INSULIN LISPRO 100 UNIT/ML SUBCUT SCH ×4 (08:24→21:06)
[2021-10-26] MEDS: carvediloL 3.125 MG TABLET PO SCH ×2 (08:25→16:43)
[2021-10-26] MEDS: PANTOPRAZOLE 40 MG TABLET PO SCH (08:25)
[2021-10-26] MEDS: ATORVASTATIN 40 MG TABLET PO SCH (08:25)
[2021-10-26] MEDS: SERTRALINE 25 MG TABLET PO SCH (08:25)
[2021-10-26] MEDS: SPIRONOLACTONE 25 MG TABLET PO SCH (08:25)
[2021-10-26] MEDS: INSULIN GLARGINE 100 UNIT/ML SUBCUT SCH ×2 (10:29→21:06)
[2021-10-26] MEDS: SODIUM CHLORIDE 0.9% 1,000 ML IV SCH ×2 (10:30→20:23)
[2021-10-26] MEDS ORDERED: INSULIN GLARGINE 100 UNIT/ML SUBCUT SCH (10:30)
[2021-10-26] MEDS: ENOXAPARIN 30 MG/0.3 ML SYRINGE SUBCUT SCH (10:36)
[2021-10-26 11:04] LABS: Bacteria,Urine Occasional /HPF (Few); Bilirubin,Urine Negative (Negative); Blood, Urine Moderate mg/dL (Negative); Glucose,Urine (UA) >=500 mg/dL (Negative); Ketones,Urine 5 mg/dL (Negative); Mucus,Urine Occasional /LPF (Occasional); Nitrite,Urine Negative (Negative); Protein,Urine 100 MG/DL; Squamous Epithelial Cell,Urine Occasional /HPF (0-10); Urine Appearance CLOUDY (Clear); Urine Color Yellow (Yellow); Urine Specific Gravity 1.015 (1.001-1.035); Urine Urobilinogen < 2.0 EU/DL (<2.0)
[2021-10-26] MEDS: MEROPENEM 500 MG in SODIUM CHLORIDE 0.9% 100 ML IV SCH (12:30)
[2021-10-26] MEDS: MORPHINE 10 MG/1 ML VIAL IM PRN (22:37)
[2021-10-27] MEDS: MEROPENEM 500 MG in SODIUM CHLORIDE 0.9% 100 ML IV SCH ×2 (00:33→14:01)
[2021-10-27] MEDS: SODIUM CHLORIDE 0.9% 1,000 ML IV SCH ×3 (05:30→22:13)
[2021-10-27] MEDS: LEVOTHYROXINE 75 MCG TABLET PO SCH (05:31)
[2021-10-27] MEDS: INSULIN LISPRO 100 UNIT/ML SUBCUT SCH ×4 (08:25→22:14)
[2021-10-27] MEDS: carvediloL 3.125 MG TABLET PO SCH ×2 (09:00→17:03)
[2021-10-27] MEDS: INSULIN GLARGINE 100 UNIT/ML SUBCUT SCH ×2 (09:27→22:13)
[2021-10-27] MEDS: DOCUSATE SODIUM 100 MG CAPSULE PO PRN (09:27)
[2021-10-27] MEDS: PANTOPRAZOLE 40 MG TABLET PO SCH (09:27)
[2021-10-27] MEDS: SPIRONOLACTONE 25 MG TABLET PO SCH (09:27)
[2021-10-27] MEDS: SERTRALINE 25 MG TABLET PO SCH (09:27)
[2021-10-27] MEDS: ATORVASTATIN 40 MG TABLET PO SCH (09:30)
[2021-10-27 09:44] LABS: Basophils # 0.1 10*3/uL (0.0-0.2); Basophils % 0.4 % (0.0-0.8); Eosinophils # 0.9 10*3/uL (0.0-0.87); Eosinophils % 6.5 % (0.00-10.9); Hematocrit 27.5 VOL% (35.7-47.0); Hemoglobin 8.9 GM/DL (12.0-16.0); Immature Granulocytes % 0.9 %; Immature Granulocytes Absolute 0.13 #; Lymphocytes # 1.8 10*3/uL (1.4-4.0); Lymphocytes % 12.4 % (21.3-54.2); Mean Corpuscular HGB Conc 32.4 GM/DL (32-36); Mean Corpuscular Volume 87.9 FL (87-102); Mean Platelet Volume 10.9 FL (9.6-12.0); Monocytes % 8.5 % (1.7-12.7); Neutrophils % 71.3 % (38.7-73.9); Platelet Count 249 T/CUMM (130-400); Red Blood Count 3.13 MC/CUMM (3.8-5.5); Red Cell Distribution Width 13.2 % (9.3-17.3); White Blood Count 14.3 T/CUMM (4-12)
[2021-10-27 10:12] LABS: Alanine Aminotransferase < 9 U/L (13-56); Albumin 1.9 G/DL (3.4-5.0); Alkaline Phosphatase 131 U/L (45-117); Aspartate Amino Transferase 25 U/L (0-37); Blood Urea Nitrogen 54 MG/DL (7-18); Calcium 8.3 MG/DL (8.5-10.1); Carbon Dioxide 21 MMOL/L (21-32); Estimated Glom Filtration Rate 27 ML/MIN; Glucose 152 MG/DL (74-106); Osmolality,Calculated 296.4 MOS/KG (273-304); Potassium 4.2 MMOL/L (3.5-5.1); Sodium 140 MMOL/L (136-145); Total Protein 6.7 G/DL (6.4-8.2)
[2021-10-27] MEDS: ENOXAPARIN 30 MG/0.3 ML SYRINGE SUBCUT SCH (10:25)
[2021-10-28] MEDS: MEROPENEM 500 MG in SODIUM CHLORIDE 0.9% 100 ML IV SCH ×2 (00:06→13:00)
[2021-10-28] MEDS: MORPHINE 10 MG/1 ML VIAL IM PRN (04:06)
[2021-10-28 05:24] LABS: Basophils # 0.1 10*3/uL (0.0-0.2); Basophils % 0.5 % (0.0-0.8); Eosinophils # 0.7 10*3/uL (0.0-0.87); Eosinophils % 5.9 % (0.00-10.9); Hematocrit 28.9 VOL% (35.7-47.0); Hemoglobin 9.1 GM/DL (12.0-16.0); Immature Granulocytes % 1.1 %; Immature Granulocytes Absolute 0.13 #; Lymphocytes # 1.6 10*3/uL (1.4-4.0); Mean Corpuscular HGB Conc 31.5 GM/DL (32-36); Mean Corpuscular Volume 88.7 FL (87-102); Mean Platelet Volume 10.6 FL (9.6-12.0); Monocytes % 8.8 % (1.7-12.7); Neutrophils % 70.7 % (38.7-73.9); Platelet Count 295 T/CUMM (130-400); Red Blood Count 3.26 MC/CUMM (3.8-5.5); Red Cell Distribution Width 13.3 % (9.3-17.3); White Blood Count 12.1 T/CUMM (4-12)
[2021-10-28 05:43] LABS: Calcium 8.3 MG/DL (8.5-10.1); Osmolality,Calculated 295.1 MOS/KG (273-304); Potassium 4.2 MMOL/L (3.5-5.1)
[2021-10-28] MEDS: LEVOTHYROXINE 75 MCG TABLET PO SCH (06:00)
[2021-10-28] MEDS: SODIUM CHLORIDE 0.9% 1,000 ML IV SCH ×3 (06:00→21:23)
[2021-10-28 07:49] LABS: Polychromasia 1+
[2021-10-28 07:50] LABS: Platelet Estimate Normal
[2021-10-28] MEDS: INSULIN GLARGINE 100 UNIT/ML SUBCUT SCH ×2 (09:08→21:23)
[2021-10-28] MEDS: SPIRONOLACTONE 25 MG TABLET PO SCH (09:09)
[2021-10-28] MEDS: PANTOPRAZOLE 40 MG TABLET PO SCH (09:09)
[2021-10-28] MEDS: ATORVASTATIN 40 MG TABLET PO SCH (09:09)
[2021-10-28] MEDS: ENOXAPARIN 30 MG/0.3 ML SYRINGE SUBCUT SCH (09:10)
[2021-10-28] MEDS: SERTRALINE 25 MG TABLET PO SCH (09:10)
[2021-10-28] MEDS: carvediloL 3.125 MG TABLET PO SCH ×2 (09:10→17:12)
[2021-10-28] MEDS: INSULIN LISPRO 100 UNIT/ML SUBCUT SCH ×4 (10:21→21:23)
[2021-10-28] MEDS: ASPIRIN EC 81 MG TABLET PO SCH (13:00)
[2021-10-29] MEDS: MEROPENEM 500 MG in SODIUM CHLORIDE 0.9% 100 ML IV SCH (00:28)
[2021-10-29] MEDS: LEVOTHYROXINE 75 MCG TABLET PO SCH (05:42)
[2021-10-29] MEDS: SODIUM CHLORIDE 0.9% 1,000 ML IV SCH ×2 (05:51→11:45)
[2021-10-29 06:08] LABS: Basophils # 0.1 10*3/uL (0.0-0.2); Basophils % 0.4 % (0.0-0.8); Eosinophils % 7.8 % (0.00-10.9); Hematocrit 27.4 VOL% (35.7-47.0); Hemoglobin 8.7 GM/DL (12.0-16.0); Immature Granulocytes % 0.7 %; Immature Granulocytes Absolute 0.09 #; Lymphocytes # 1.8 10*3/uL (1.4-4.0); Lymphocytes % 14.1 % (21.3-54.2); Mean Corpuscular HGB Conc 31.8 GM/DL (32-36); Mean Corpuscular Volume 88.7 FL (87-102); Mean Platelet Volume 10.6 FL (9.6-12.0); Monocytes % 7.6 % (1.7-12.7); Neutrophils % 69.4 % (38.7-73.9); Platelet Count 338 T/CUMM (130-400); Red Blood Count 3.09 MC/CUMM (3.8-5.5); Red Cell Distribution Width 13.4 % (9.3-17.3); White Blood Count 12.6 T/CUMM (4-12)
[2021-10-29 06:20] LABS: Calcium 8.8 MG/DL (8.5-10.1); Osmolality,Calculated 291.1 MOS/KG (273-304); Potassium 4.2 MMOL/L (3.5-5.1)
[2021-10-29] MEDS: INSULIN LISPRO 100 UNIT/ML SUBCUT SCH ×2 (08:33→11:56)
[2021-10-29] MEDS: PANTOPRAZOLE 40 MG TABLET PO SCH (08:53)
[2021-10-29] MEDS: ATORVASTATIN 40 MG TABLET PO SCH (08:53)
[2021-10-29] MEDS: ASPIRIN EC 81 MG TABLET PO SCH (08:53)
[2021-10-29] MEDS: SERTRALINE 25 MG TABLET PO SCH (08:53)
[2021-10-29] MEDS: SPIRONOLACTONE 25 MG TABLET PO SCH (08:53)
[2021-10-29] MEDS: INSULIN GLARGINE 100 UNIT/ML SUBCUT SCH (08:53)
[2021-10-29] MEDS: carvediloL 3.125 MG TABLET PO SCH (08:53)
[2021-10-29] MEDS: ENOXAPARIN 30 MG/0.3 ML SYRINGE SUBCUT SCH (11:44)
[2021-10-29 11:45] VITALS: BP 143/41
[2021-10-29] MEDS ORDERED: ERTAPENEM 1,000 MG in SODIUM CHLORIDE 0.9% 100 ML IV SCH (12:00)
== END 2021-10-29 14:31 | disposition swing bed (61) | DRG 521 ==
LOC: EDBD → EDUNIT# → N.ED 08:43 → SUATTDRO 10:12 → N.EDINP 10:12 → N.3E 11:31
PROVIDERS: ADMIT Internal Medicine; ATTEND Internal Medicine

== ENCOUNTER 2021-11-08 21:42 | Inpatient (IN) ==
[2021-11-08 22:18] LABS: Basophils # 0.1 10*3/uL (0.0-0.2); Basophils % 0.3 % (0.0-0.8); Eosinophils # 0.4 10*3/uL (0.0-0.87); Eosinophils % 2.2 % (0.00-10.9); Hemoglobin 8.4 GM/DL (12.0-16.0); Immature Granulocytes % 0.8 %; Immature Granulocytes Absolute 0.14 #; Lymphocytes # 0.9 10*3/uL (1.4-4.0); Mean Corpuscular HGB Conc 31.1 GM/DL (32-36); Mean Corpuscular Volume 86.3 FL (87-102); Mean Platelet Volume 9.6 FL (9.6-12.0); Monocytes % 4.4 % (1.7-12.7); Neutrophils % 87.3 % (38.7-73.9); Platelet Count 467 T/CUMM (130-400); Red Blood Count 3.13 MC/CUMM (3.8-5.5); Red Cell Distribution Width 14.2 % (9.3-17.3); White Blood Count 16.9 T/CUMM (4-12)
[2021-11-08 22:26] LABS: INR 1.1; PT Patient Result 11.9 SECS (10.5-12.0)
[2021-11-08 22:33] LABS: Albumin 1.9 G/DL (3.4-5.0); Bilirubin,Total 0.5 MG/DL (0.20-1.00); Calcium 7.6 MG/DL (8.5-10.1); Total Protein 6.3 G/DL (6.4-8.2)
[2021-11-08] MEDS ORDERED: FUROSEMIDE 40 MG/4 ML VIAL IV STA (23:04)
[2021-11-08] MEDS ORDERED: MAGNESIUM SULF RIDER 4 GM/100 ML PREMIX IV PRN (23:51)
[2021-11-08] MEDS ORDERED: DEXTROSE 50% 25 GM/50 ML VIAL IV PRN (23:51)
[2021-11-08] MEDS ORDERED: ACETAMINOPHEN 325 MG TABLET PO PRN (23:51)
[2021-11-08] MEDS ORDERED: ONDANSETRON 4 MG/2 ML VIAL IV PRN (23:51)
[2021-11-08] MEDS ORDERED: GLUCAGON 1 MG VIAL IM PRN (23:51)
[2021-11-08] MEDS ORDERED: MAGNESIUM SULF RIDER 2 GM/50 ML PREMIX IV PRN (23:51)
[2021-11-09] MEDS ORDERED: DEXTROSE 50% 25 GM/50 ML SYRINGE IV PRN (00:05)
[2021-11-09 07:23] LABS: Albumin 1.9 G/DL (3.4-5.0); Bilirubin,Total 0.5 MG/DL (0.20-1.00); Potassium 4.4 MMOL/L (3.5-5.1); Risk Ratio 2.13; Total Protein 7.3 G/DL (6.4-8.2); VLDL Cholesterol 13.8 MG/DL
[2021-11-09 07:31] LABS: Basophils # 0.1 10*3/uL (0.0-0.2); Basophils % 0.4 % (0.0-0.8); Eosinophils # 0.3 10*3/uL (0.0-0.87); Eosinophils % 1.4 % (0.00-10.9); Hematocrit 26.5 VOL% (35.7-47.0); Hemoglobin 8.2 GM/DL (12.0-16.0); Immature Granulocytes % 0.6 %; Lymphocytes # 1.5 10*3/uL (1.4-4.0); Lymphocytes % 8.4 % (21.3-54.2); Mean Corpuscular HGB Conc 30.9 GM/DL (32-36); Mean Corpuscular Volume 88.3 FL (87-102); Monocytes % 4.2 % (1.7-12.7); Platelet Count 461 T/CUMM (130-400); Red Cell Distribution Width 14.4 % (9.3-17.3); White Blood Count 17.4 T/CUMM (4-12)
[2021-11-09] MEDS: INSULIN REGULAR 100 UNIT/ML SUBCUT SCH ×4 (07:43→22:00)
[2021-11-09] MEDS ORDERED: FUROSEMIDE 40 MG/4 ML VIAL IV SCH (08:00)
[2021-11-09] MEDS: FUROSEMIDE 40 MG/4 ML VIAL IV SCH ×2 (08:27→17:00)
[2021-11-09 08:45] LABS: Bacteria,Urine Occasional /HPF (Few); Bilirubin,Urine Negative (Negative); Blood, Urine Negative (Negative); Glucose,Urine (UA) 50 mg/dL (Negative); Hyaline Casts,Urine 8 /LPF (0-3); Ketones,Urine Negative (Negative); Nitrite,Urine Positive (Negative); Protein,Urine 100 MG/DL; Squamous Epithelial Cell,Urine Occasional /HPF (0-10); Urine Appearance Slightly Hazy (Clear); Urine Color Yellow (Yellow); Urine Urobilinogen < 2.0 EU/DL (<2.0)
[2021-11-09] MEDS ORDERED: ENOXAPARIN 30 MG/0.3 ML SYRINGE SUBCUT SCH (09:00)
[2021-11-09] MEDS: PANTOPRAZOLE 40 MG TABLET PO SCH (09:14)
[2021-11-09] MEDS: cefTRIAXone 1,000 MG in SODIUM CHLORIDE 0.9% 100 ML IV SCH (10:45)
[2021-11-09] MEDS ORDERED: DEXTROSE 10% 250 ML BAG IV PRN (11:00)
[2021-11-09] MEDS: SPIRONOLACTONE 25 MG TABLET PO SCH (13:26)
[2021-11-09] MEDS: hydrALAZINE 25 MG TABLET PO SCH ×2 (13:27→22:01)
[2021-11-09] MEDS: ISOSORBIDE DINITRATE 20 MG TABLET PO SCH ×2 (13:27→22:01)
[2021-11-09] MEDS: ASPIRIN EC 81 MG TABLET PO SCH (13:27)
[2021-11-09] MEDS: carvediloL 3.125 MG TABLET PO SCH ×2 (13:27→22:01)
[2021-11-09] MEDS: CLOPIDOGREL 75 MG TABLET PO SCH (15:49)
[2021-11-09] MEDS: ALBUTEROL 0.63 MG/3 ML NEB RESP TX SCH ×2 (16:29→19:30)
[2021-11-09] MEDS: COLLAGENASE OINT 30 GM TUBE TOP SCH (17:00)
[2021-11-09] MEDS: ATORVASTATIN 40 MG TABLET PO SCH (22:01)
[2021-11-10] MEDS: ALBUTEROL 0.63 MG/3 ML NEB RESP TX SCH ×4 (01:47→18:54)
[2021-11-10 04:58] LABS: Basophils # 0.1 10*3/uL (0.0-0.2); Basophils % 0.5 % (0.0-0.8); Eosinophils # 0.8 10*3/uL (0.0-0.87); Eosinophils % 6.1 % (0.00-10.9); Hematocrit 25.1 VOL% (35.7-47.0); Hemoglobin 7.7 GM/DL (12.0-16.0); Immature Granulocytes % 0.5 %; Immature Granulocytes Absolute 0.07 #; Lymphocytes # 1.2 10*3/uL (1.4-4.0); Lymphocytes % 8.9 % (21.3-54.2); Mean Corpuscular HGB Conc 30.7 GM/DL (32-36); Mean Corpuscular Volume 87.5 FL (87-102); Mean Platelet Volume 9.7 FL (9.6-12.0); Monocytes % 6.6 % (1.7-12.7); Neutrophils % 77.4 % (38.7-73.9); Platelet Count 382 T/CUMM (130-400); Red Blood Count 2.87 MC/CUMM (3.8-5.5); White Blood Count 13.7 T/CUMM (4-12)
[2021-11-10 05:18] LABS: Calcium 8.2 MG/DL (8.5-10.1); Osmolality,Calculated 290.8 MOS/KG (273-304); Potassium 4.2 MMOL/L (3.5-5.1)
[2021-11-10] MEDS: ISOSORBIDE DINITRATE 20 MG TABLET PO SCH ×2 (08:29→20:38)
[2021-11-10] MEDS: SPIRONOLACTONE 25 MG TABLET PO SCH (08:29)
[2021-11-10] MEDS: hydrALAZINE 25 MG TABLET PO SCH ×2 (08:30→20:38)
[2021-11-10] MEDS: ASPIRIN EC 81 MG TABLET PO SCH (08:30)
[2021-11-10] MEDS: CLOPIDOGREL 75 MG TABLET PO SCH (08:30)
[2021-11-10] MEDS: PANTOPRAZOLE 40 MG TABLET PO SCH (08:30)
[2021-11-10] MEDS: carvediloL 3.125 MG TABLET PO SCH ×2 (08:30→20:37)
[2021-11-10] MEDS: FUROSEMIDE 40 MG/4 ML VIAL IV SCH ×2 (08:31→17:20)
[2021-11-10] MEDS: INSULIN REGULAR 100 UNIT/ML SUBCUT SCH ×4 (08:32→20:38)
[2021-11-10] MEDS ORDERED: ENOXAPARIN 100 MG/ML SYRINGE SUBCUT SCH ×2 (09:00→11:04)
[2021-11-10] MEDS ORDERED: ENOXAPARIN 30 MG/0.3 ML SYRINGE SUBCUT SCH (09:00)
[2021-11-10] MEDS: COLLAGENASE OINT 30 GM TUBE TOP SCH (09:19)
[2021-11-10 09:43] LABS: % Iron Saturation 12.5 % (18-50); Ferritin 143.6 ng/mL (8-252)
[2021-11-10 09:45] LABS: Folate 9.64 NG/ML (5.38-24.0)
[2021-11-10] MEDS: cefTRIAXone 1,000 MG in SODIUM CHLORIDE 0.9% 100 ML IV SCH (10:13)
[2021-11-10] MEDS: INSULIN GLARGINE 100 UNIT/ML SUBCUT SCH (14:31)
[2021-11-10] MEDS: OSELTAMIVIR 30 MG CAPSULE PO SCH ×2 (14:31→20:38)
[2021-11-10] MEDS: INSULIN LISPRO 100 UNIT/ML SUBCUT SCH (17:19)
[2021-11-10] MEDS: ATORVASTATIN 40 MG TABLET PO SCH (20:38)
[2021-11-11] MEDS: ALBUTEROL 0.63 MG/3 ML NEB RESP TX SCH ×4 (00:07→19:20)
[2021-11-11 05:30] LABS: Basophils # 0.1 10*3/uL (0.0-0.2); Basophils % 0.6 % (0.0-0.8); Eosinophils # 1.1 10*3/uL (0.0-0.87); Eosinophils % 9.7 % (0.00-10.9); Hematocrit 25.9 VOL% (35.7-47.0); Hemoglobin 7.9 GM/DL (12.0-16.0); Immature Granulocytes % 0.9 %; Lymphocytes # 1.5 10*3/uL (1.4-4.0); Lymphocytes % 12.6 % (21.3-54.2); Mean Corpuscular HGB Conc 30.5 GM/DL (32-36); Mean Corpuscular Volume 87.8 FL (87-102); Mean Platelet Volume 9.6 FL (9.6-12.0); Monocytes % 7.4 % (1.7-12.7); Neutrophils % 68.8 % (38.7-73.9); Platelet Count 387 T/CUMM (130-400); Red Blood Count 2.95 MC/CUMM (3.8-5.5); White Blood Count 11.6 T/CUMM (4-12)
[2021-11-11 06:03] LABS: Calcium 8.4 MG/DL (8.5-10.1); Osmolality,Calculated 290.3 MOS/KG (273-304)
[2021-11-11] MEDS: OSELTAMIVIR 30 MG CAPSULE PO SCH ×2 (08:51→20:34)
[2021-11-11] MEDS: FUROSEMIDE 40 MG/4 ML VIAL IV SCH (08:51)
[2021-11-11] MEDS: hydrALAZINE 25 MG TABLET PO SCH ×2 (08:51→20:35)
[2021-11-11] MEDS: INSULIN LISPRO 100 UNIT/ML SUBCUT SCH ×3 (08:51→16:52)
[2021-11-11] MEDS: ASPIRIN EC 81 MG TABLET PO SCH (08:52)
[2021-11-11] MEDS: PANTOPRAZOLE 40 MG TABLET PO SCH (08:52)
[2021-11-11] MEDS: ISOSORBIDE DINITRATE 20 MG TABLET PO SCH ×2 (08:52→20:35)
[2021-11-11] MEDS: carvediloL 3.125 MG TABLET PO SCH ×2 (08:52→20:35)
[2021-11-11] MEDS ORDERED: ENOXAPARIN 80 MG/0.8 ML SYRINGE SUBCUT SCH (09:00)
[2021-11-11] MEDS: INSULIN REGULAR 100 UNIT/ML SUBCUT SCH ×4 (09:23→20:37)
[2021-11-11] MEDS: INSULIN GLARGINE 100 UNIT/ML SUBCUT SCH (11:17)
[2021-11-11] MEDS: COLLAGENASE OINT 30 GM TUBE TOP SCH (11:30)
[2021-11-11] MEDS: cefTRIAXone 1,000 MG in SODIUM CHLORIDE 0.9% 100 ML IV SCH (11:31)
[2021-11-11] MEDS: ATORVASTATIN 40 MG TABLET PO SCH (20:34)
[2021-11-12] MEDS: ALBUTEROL 0.63 MG/3 ML NEB RESP TX SCH ×4 (01:26→19:35)
[2021-11-12 05:36] LABS: Basophils # 0.1 10*3/uL (0.0-0.2); Basophils % 0.4 % (0.0-0.8); Eosinophils % 8.8 % (0.00-10.9); Hemoglobin 8.1 GM/DL (12.0-16.0); Immature Granulocytes % 0.9 %; Immature Granulocytes Absolute 0.11 #; Lymphocytes # 1.4 10*3/uL (1.4-4.0); Lymphocytes % 11.7 % (21.3-54.2); Mean Corpuscular Volume 87.1 FL (87-102); Mean Platelet Volume 9.4 FL (9.6-12.0); Monocytes % 7.1 % (1.7-12.7); Neutrophils % 71.1 % (38.7-73.9); Platelet Count 415 T/CUMM (130-400); White Blood Count 11.8 T/CUMM (4-12)
[2021-11-12 06:01] LABS: Calcium 8.6 MG/DL (8.5-10.1); Osmolality,Calculated 286.8 MOS/KG (273-304); Potassium 4.2 MMOL/L (3.5-5.1)
[2021-11-12] MEDS: INSULIN LISPRO 100 UNIT/ML SUBCUT SCH ×3 (09:52→16:29)
[2021-11-12] MEDS: INSULIN GLARGINE 100 UNIT/ML SUBCUT SCH (09:52)
[2021-11-12] MEDS: ERTAPENEM 1,000 MG in SODIUM CHLORIDE 0.9% 100 ML IV SCH (09:53)
[2021-11-12] MEDS: INSULIN REGULAR 100 UNIT/ML SUBCUT SCH ×5 (09:53→21:17)
[2021-11-12] MEDS: FUROSEMIDE 40 MG/4 ML VIAL IV SCH (09:56)
[2021-11-12] MEDS: ASPIRIN EC 81 MG TABLET PO SCH (09:57)
[2021-11-12] MEDS: OSELTAMIVIR 30 MG CAPSULE PO SCH ×2 (09:57→21:16)
[2021-11-12] MEDS: ISOSORBIDE DINITRATE 20 MG TABLET PO SCH ×2 (09:57→21:17)
[2021-11-12] MEDS: hydrALAZINE 25 MG TABLET PO SCH ×2 (09:57→21:16)
[2021-11-12] MEDS: carvediloL 3.125 MG TABLET PO SCH ×2 (09:57→21:16)
[2021-11-12] MEDS: APIXABAN 5 MG TABLET PO SCH ×2 (09:57→21:17)
[2021-11-12] MEDS: PANTOPRAZOLE 40 MG TABLET PO SCH (09:58)
[2021-11-12] MEDS: COLLAGENASE OINT 30 GM TUBE TOP SCH (09:59)
[2021-11-12] MEDS: MELATONIN 3 MG TABLET PO SCH (21:16)
[2021-11-12] MEDS: ATORVASTATIN 40 MG TABLET PO SCH (21:16)
[2021-11-13] MEDS: ALBUTEROL 0.63 MG/3 ML NEB RESP TX SCH ×4 (01:53→19:46)
[2021-11-13] MEDS: INSULIN LISPRO 100 UNIT/ML SUBCUT SCH ×3 (08:46→16:48)
[2021-11-13] MEDS: INSULIN GLARGINE 100 UNIT/ML SUBCUT SCH (08:47)
[2021-11-13] MEDS: FUROSEMIDE 40 MG/4 ML VIAL IV SCH (08:50)
[2021-11-13] MEDS: OSELTAMIVIR 30 MG CAPSULE PO SCH ×2 (08:51→21:07)
[2021-11-13] MEDS: ASPIRIN EC 81 MG TABLET PO SCH (08:51)
[2021-11-13] MEDS: APIXABAN 5 MG TABLET PO SCH ×2 (08:51→21:05)
[2021-11-13] MEDS: hydrALAZINE 25 MG TABLET PO SCH ×2 (08:51→21:06)
[2021-11-13] MEDS: carvediloL 3.125 MG TABLET PO SCH ×2 (08:52→21:05)
[2021-11-13] MEDS: INSULIN REGULAR 100 UNIT/ML SUBCUT SCH ×4 (08:52→23:40)
[2021-11-13] MEDS: ISOSORBIDE DINITRATE 20 MG TABLET PO SCH ×2 (08:52→21:05)
[2021-11-13] MEDS: PANTOPRAZOLE 40 MG TABLET PO SCH (08:52)
[2021-11-13] MEDS: COLLAGENASE OINT 30 GM TUBE TOP SCH (08:53)
[2021-11-13] MEDS: ERTAPENEM 1,000 MG in SODIUM CHLORIDE 0.9% 100 ML IV SCH (09:05)
[2021-11-13] MEDS ORDERED: TUBERCULIN SKIN TEST 0.1 ML SYRINGE INTRADERM ONE (17:07)
[2021-11-13] MEDS: MELATONIN 3 MG TABLET PO SCH (21:05)
[2021-11-13] MEDS: ATORVASTATIN 40 MG TABLET PO SCH (21:06)
[2021-11-14] MEDS: ALBUTEROL 0.63 MG/3 ML NEB RESP TX SCH ×4 (01:20→20:38)
[2021-11-14 05:23] LABS: Basophils # 0.1 10*3/uL (0.0-0.2); Basophils % 0.6 % (0.0-0.8); Eosinophils # 1.2 10*3/uL (0.0-0.87); Eosinophils % 11.9 % (0.00-10.9); Hematocrit 24.7 VOL% (35.7-47.0); Hemoglobin 7.6 GM/DL (12.0-16.0); Immature Granulocytes % 0.9 %; Immature Granulocytes Absolute 0.09 #; Lymphocytes # 1.7 10*3/uL (1.4-4.0); Lymphocytes % 17.4 % (21.3-54.2); Mean Corpuscular HGB Conc 30.8 GM/DL (32-36); Mean Corpuscular Volume 87.6 FL (87-102); Mean Platelet Volume 9.5 FL (9.6-12.0); Monocytes % 9.1 % (1.7-12.7); Neutrophils % 60.1 % (38.7-73.9); Platelet Count 441 T/CUMM (130-400); Red Blood Count 2.82 MC/CUMM (3.8-5.5); White Blood Count 9.8 T/CUMM (4-12)
[2021-11-14 05:34] LABS: Calcium 8.6 MG/DL (8.5-10.1)
[2021-11-14 05:35] LABS: Osmolality,Calculated 281.7 MOS/KG (273-304); Potassium 4.1 MMOL/L (3.5-5.1)
[2021-11-14 05:51] LABS: Eosinophils 8 % (0-10); Hypochromia 1+; Lymphocytes 10 % (20-55); Microcytosis 1+; Platelet Estimate Adequate; Segmented Neutrophils 79 % (50-85); Total Cells Counted 100
[2021-11-14] MEDS: CHOLECALCIFEROL 1,000 UNIT TABLET PO SCH (08:24)
[2021-11-14] MEDS: hydrALAZINE 25 MG TABLET PO SCH ×2 (08:25→20:32)
[2021-11-14] MEDS: carvediloL 3.125 MG TABLET PO SCH ×2 (08:25→20:32)
[2021-11-14] MEDS: ASPIRIN EC 81 MG TABLET PO SCH (08:25)
[2021-11-14] MEDS: APIXABAN 5 MG TABLET PO SCH ×2 (08:25→20:32)
[2021-11-14] MEDS: ISOSORBIDE DINITRATE 20 MG TABLET PO SCH ×2 (08:25→20:32)
[2021-11-14] MEDS: PANTOPRAZOLE 40 MG TABLET PO SCH (08:25)
[2021-11-14] MEDS: FUROSEMIDE 40 MG/4 ML VIAL IV SCH (08:26)
[2021-11-14] MEDS: OSELTAMIVIR 30 MG CAPSULE PO SCH (08:26)
[2021-11-14] MEDS: INSULIN GLARGINE 100 UNIT/ML SUBCUT SCH (08:26)
[2021-11-14] MEDS: COLLAGENASE OINT 30 GM TUBE TOP SCH (08:26)
[2021-11-14] MEDS: INSULIN LISPRO 100 UNIT/ML SUBCUT SCH ×3 (08:27→20:00)
[2021-11-14] MEDS: ERTAPENEM 1,000 MG in SODIUM CHLORIDE 0.9% 100 ML IV SCH (09:02)
[2021-11-14] MEDS: INSULIN REGULAR 100 UNIT/ML SUBCUT SCH ×3 (09:21→20:32)
[2021-11-14] MEDS: ATORVASTATIN 40 MG TABLET PO SCH (20:32)
[2021-11-14] MEDS: MELATONIN 3 MG TABLET PO SCH (20:32)
[2021-11-15] MEDS: ALBUTEROL 0.63 MG/3 ML NEB RESP TX SCH ×2 (01:30→07:56)
[2021-11-15 05:45] LABS: Basophils # 0.1 10*3/uL (0.0-0.2); Basophils % 0.9 % (0.0-0.8); Eosinophils # 1.1 10*3/uL (0.0-0.87); Eosinophils % 12.5 % (0.00-10.9); Hematocrit 26.8 VOL% (35.7-47.0); Hemoglobin 8.1 GM/DL (12.0-16.0); Immature Granulocytes % 1.1 %; Lymphocytes # 1.6 10*3/uL (1.4-4.0); Lymphocytes % 17.7 % (21.3-54.2); Mean Corpuscular HGB Conc 30.2 GM/DL (32-36); Mean Corpuscular Volume 88.7 FL (87-102); Mean Platelet Volume 9.3 FL (9.6-12.0); Monocytes % 10.4 % (1.7-12.7); Neutrophils % 57.4 % (38.7-73.9); Platelet Count 458 T/CUMM (130-400); Red Blood Count 3.02 MC/CUMM (3.8-5.5); Red Cell Distribution Width 14.5 % (9.3-17.3); White Blood Count 8.8 T/CUMM (4-12)
[2021-11-15 06:13] LABS: Calcium 8.4 MG/DL (8.5-10.1); Eosinophils 12 % (0-10); Hypochromia 2+; Lymphocytes 20 % (20-55); Microcytosis 1+; Platelet Estimate Adequate; Potassium 4.3 MMOL/L (3.5-5.1); Segmented Neutrophils 62 % (50-85); Total Cells Counted 100
[2021-11-15] MEDS: hydrALAZINE 25 MG TABLET PO SCH (08:52)
[2021-11-15] MEDS: CHOLECALCIFEROL 1,000 UNIT TABLET PO SCH (08:52)
[2021-11-15] MEDS: ASPIRIN EC 81 MG TABLET PO SCH (08:52)
[2021-11-15] MEDS: APIXABAN 5 MG TABLET PO SCH (08:52)
[2021-11-15] MEDS: carvediloL 3.125 MG TABLET PO SCH (08:53)
[2021-11-15] MEDS: PANTOPRAZOLE 40 MG TABLET PO SCH (08:53)
[2021-11-15] MEDS: ISOSORBIDE DINITRATE 20 MG TABLET PO SCH (08:53)
[2021-11-15] MEDS: FUROSEMIDE 40 MG/4 ML VIAL IV SCH (09:10)
[2021-11-15] MEDS: INSULIN REGULAR 100 UNIT/ML SUBCUT SCH ×2 (09:10→11:55)
[2021-11-15] MEDS: INSULIN GLARGINE 100 UNIT/ML SUBCUT SCH (09:10)
[2021-11-15] MEDS: INSULIN LISPRO 100 UNIT/ML SUBCUT SCH (09:10)
[2021-11-15] MEDS: COLLAGENASE OINT 30 GM TUBE TOP SCH (09:15)
[2021-11-15] MEDS: ERTAPENEM 1,000 MG in SODIUM CHLORIDE 0.9% 100 ML IV SCH (09:23)
[2021-11-15 09:31] VITALS: BP 160/50
[2021-11-16] MEDS ORDERED: NITROFURANTOIN MACROCRYSTALS 50 MG CAPSULE PO SCH (09:00)
[2021-11-19] MEDS ORDERED: APIXABAN 5 MG TABLET PO SCH (09:00)
== END 2021-11-15 11:55 | disposition swing bed (61) | DRG 280 ==
LOC: EDBD → EDUNIT# → N.ED 21:42 → N.EDINP 21:42 → SUATTDRO 23:51 → N.TELEN 11-09 12:27 → SUATTDRO 11-09 15:14
PROVIDERS: ADMIT Internal Medicine; ATTEND Hospitalist